=== PATIENT | female | born 1970 | race Caucasian/White ===

== ENCOUNTER 2019-08-11 13:15 | Emergency (ER) | payer OTHER, SELFPAY ==
[2019-08-11 13:20] VITALS: BP 140/90; PULSE 74; RESP 20; O2SAT 100
--- NOTE | 2019-08-11 13:39 | ED.URI ---
HPI - URI/Sore Throat General Chief Complaint: Upper Respiratory Infection Stated Complaint: Eat/Nose/throat Time Seen by Provider: 08/11/19 13:39 Source: patient and family Mode of arrival: ambulatory History of Present Illness HPI Narrative: Patient presents with bilateral ear pain. Patient denies any hearing loss denies any drainage from her ears. Patient states she had cold symptoms last week which have since resolved. Patient has not taken thing [id number] for her symptoms. Related Data Allergies Allergy/AdvReac Type Severity Reaction Status Date / Time coconut Allergy Unknown Unknown Verified 08/11/19 13:43 Review of Systems Review of Systems: Narrative: CONSTITUTIONAL: Denies fever, chills, or sweats. EYES: Denies visual changes, redness, or discharge. ENT: Denies rhinorrhea, congestion, sore throat, reports left ear pain CARDIOVASCULAR: Denies chest pain, palpitations, or edema. RESPIRATORY: Denies cough or dyspnea. GASTROINTESTINAL: Denies abdominal pain, nausea, vomiting, or diarrhea. GENITOURINARY: Denies dysuria or hematuria. SKIN: Denies rash or itching. MUSCULOSKELETAL: Denies back pain, joint pain, or myalgia. NEUROLOGIC: Denies headache, numbness, or weakness. PSYCHIATRIC: Denies anxiety or depression. PMFSH Comments At time of signature, agree with nursing past medical, surgical, social and family history. There is no relevant family history pertinent to the presenting complaint Exam Narrative: Exam Narrative: GENERAL: Well-appearing, well-nourished, and in no acute distress. HEAD: Normocephalic, atraumatic. EYES: PERRLA and EOMI. ENT: Nares clear, no rhinorrhea or epistaxis. Mucous membranes moist. Left area TM bulging with erythremia to canal right TM dullness NECK: Supple. CHEST: Clear to auscultation. No respiratory distress. HEART: Regular rate and rhythm. No murmur heard. Normal peripheral pulses. ABDOMEN: Soft, nontender, nondistended, normal active bowel sounds. EXTREMITIES: Normal range of motion. No edema. SKIN: Warm, dry, no rash. NEURO: No focal deficits. Alert and oriented x3. [place] Coma Scale Eye Opening: Spontaneous 4 [place] Coma Scale Motor: Obeys Commands 6 [place] Coma Scale Verbal: Oriented 5 [place] Coma Scale Total 15 MDM - URI/Sore Throat Differential Diagnosis Differential diagnosis: Likely upper respiratory infection, otitis media and viral infection Critical Care Time Critical Care Time Critical Care Time: No Discharge Plan Discharge Clinical Impression: Otitis media Qualifiers: Otitis media type: suppurative Chronicity: acute Laterality: left Recurrence: non-recurrent Spontaneous tympanic membrane rupture: without spontaneous rupture Qualified Code(s): H66.002 - Acute suppurative otitis media without spontaneous rupture of ear drum, left ear Patient Disposition: Home, Self-Care Condition: Stable Instructions: Antibiotic Form Additional Instructions: take medications as prescribed. return for worsening signs or symptoms return if facial pain increases, fever, worsening symptoms, shortness of breath, chest pain, productive cough or difficulty swallowing) and agrees with the plan. congestion - flonase am and pm for chronic sinus congestion or prolonged symptoms of sinusitis (takes several days to work). one to three times a day of irrigation of sinus with saline spray, ocean nasal spray or narinder pot. fluids. if you don't have hypertension-afrin nasal spray with a 3 day limit for immediate relief of sinus congestion. for runny nose: do over the counter antihistamine (claritin, benadryl, zyrtec) for sneezing, runny nose. allergies. sudafed or decongestant can also be used, unless you have elevated blood pressure, nursing or . pineapple juice to help thin mucus pain and discomfort: over the counter treatment for pain - tylenol - with a max of 3 grams a day, not to take more than 3-4 day
== END 2019-08-11 14:07 | disposition home or self-care (01) ==
PROVIDERS: Emergency Provider Nurse Practitioner Family
DX: H66.002 Acute suppurative otitis media without spontaneous rupture of ear drum, left ear (principal)
CPT/HCPCS: 99213; G0463

== ENCOUNTER 2021-11-06 10:21 | Emergency (ER) | payer OTHER, SELFPAY ==
[2021-11-06 10:28] VITALS: BP 126/76; PULSE 78; RESP 14; TEMP 36.8; O2SAT 100
--- NOTE | 2021-11-06 10:34 | ED.URI ---
HPI - URI/Sore Throat General Chief Complaint: Upper Respiratory Infection Stated Complaint: ears throat abdo pain Time Seen by Provider: 11/06/21 10:36 Source: patient and RN notes reviewed History of Present Illness HPI Narrative: Patient is a 51-year-old female who presents the urgent care with complaints of sore throat, bilateral ear pain, intermittent abdominal discomfort and dysuria. Patient also reports of intermittent back pain. States that her symptoms have been ongoing off and on for approximately 2 months. Patient states that she was taking some cold medication [id number] without much relief. Denies of any fevers, nausea, vomiting. Denies of any known ill exposures. No other acute complaints. No acute distress noted. Patient aware of the plan of care. Some parts of this dictation were generated by voice recognition software and may contain typographical and/or grammatical inaccuracies. Related Data Home Medications Medication Instructions Recorded Confirmed quetiapine 100 mg PO DAILY 11/06/21 11/06/21 sertraline 100 mg PO DAILY 11/06/21 11/06/21 Allergies Allergy/AdvReac Type Severity Reaction Status Date / Time No Known Allergies Allergy Verified 11/06/21 10:38 Review of Systems Review of Systems: CONSTITUTIONAL: Denies fever, chills, or sweats. EYES: Denies visual changes, redness, or discharge. ENT: Reports of bilateral otalgia and sore throat CARDIOVASCULAR: Denies chest pain, palpitations, or edema. RESPIRATORY: Denies cough or dyspnea. GASTROINTESTINAL: Reports of mild abdominal discomfort without nausea or vomiting GENITOURINARY: Reports of dysuria SKIN: Denies rash or itching. MUSCULOSKELETAL: Denies back pain, joint pain, or myalgia. NEUROLOGIC: Denies headache, numbness, or weakness. All other systems reviewed are negative, except as documented in HPI. PMFSH Comments At the time of my signature, I reviewed and agree with the nursing past medical, surgical, social, and family history. There is no relevant family history pertinent to the patient complaint. Exam Narrative: GENERAL: This is a well-nourished, well-developed patient, in no apparent distress. HEAD: normocephalic, atraumatic. EYES: PERRL. Sclera clear/white. Vision is grossly intact. EARS: External ears normal, auditory canals clear and without drainage, mild bilateral effusions without otitis. TMs normal without perforation. Hearing grossly intact. NOSE: External nose normal with no obvious nasal discharge, nares without redness, no rhinorrhea. THROAT: Mucous membranes moist, posterior pharynx clear. Moderate postnasal drainage NECK: Neck supple CARDIOVASCULAR: Regular rate and rhythm without murmurs, gallops, or rubs. RESPIRATORY: Clear to auscultation. Breath sounds equal bilaterally. No wheezes, rales, or rhonchi. GASTROINTESTINAL: Abdomen soft, non-tender, nondistended. Bowel sounds are active. SKIN: warm, intact with no suspicious lesions or rash, good texture and turgor. NEURO: awake, alert, and oriented to person, place and time. There were no obvious focal neurologic abnormalities. EXTREMITIES: No clubbing, cyanosis, or edema. BACK: Mild diffuse lumbar tenderness Course Course Level of Care: Express Care Visit Vital Signs Vital signs: Vital Signs Temperature 98.3 F 11/06/21 10:28 Pulse Rate 78 11/06/21 10:28 Respiratory Rate 14 11/06/21 10:28 Blood Pressure 126/76 11/06/21 10:28 Pulse Oximetry 100 11/06/21 10:28 Temperature 98.3 F 11/06/21 10:28 Pulse Rate 78 11/06/21 10:28 Respiratory Rate 14 11/06/21 10:28 Blood Pressure 126/76 11/06/21 10:28 Pulse Oximetry 100 11/06/21 10:28 Reviewed MDM - URI/Sore Throat MDM Narrative Medical decision making narrative: Reviewed lab results with the patient. She is aware that urine analysis is not indicative of a urinary tract infection. Advised the patient to use [id number] antihistamine such as Claritin and Flonase nasal
== END 2021-11-06 11:20 | disposition home or self-care (01) ==
PROVIDERS: Emergency Provider Nurse Practitioner Family
DX: J32.9 Chronic sinusitis, unspecified (principal); R30.0 Dysuria; F32.A Depression, unspecified
CPT/HCPCS: 81003; 99213; G0463

== ENCOUNTER 2021-11-15 09:17 | Outpatient (CLI) | payer OTHER, SELFPAY ==
--- NOTE | ~2021-11-15 | US_ITS ---
EXAMINATION: US abdomen complete DATE: 11/15/2021 09:45 INDICATION: Abdominal pain TECHNIQUE: Multiple grayscale and Doppler ultrasound images of the abdomen were obtained. COMPARISON: None available FINDINGS: The head and body of the pancreas are normal. The pancreatic tail is obscured by bowel gas. The liver is normal with normal echogenicity and echotexture. No surface nodularity. Normal hepatope chad flow in the main portal vein. The gallbladder is surgically absent. The normal common bile duct m easures 4 mm. The visualized portions of the aorta and inferior vena cava are normal. The right kidney measures 11.4 x 4.1 x 4.6 cm. The left kidney measures 11.7 x 5.0 x 5.2 cm. The kidn eys demonstrate normal parenchymal echogenicity. There is no hydronephrosis. The spleen is normal in appearance and measures 10.2 cm. IMPRESSION: 1. Unremarkable postcholecystectomy ultrasound. Reviewed, dictated and finalized at location A.
== END 2021-11-15 09:18 | disposition home or self-care (01) ==
LOC: CHSIMG 09:20
PROVIDERS: PCP Family Medicine
DX: R10.11 Right upper quadrant pain (principal); J44.9 Chronic obstructive pulmonary disease, unspecified
CPT/HCPCS: 76700

== ENCOUNTER 2021-11-24 10:09 | Outpatient (CLI) | payer OTHER, SELFPAY ==
--- NOTE | 2021-12-06 11:38 | WPDPFTINT ---
PFT Procedure Performed PFT Procedure Performed Spirometry with Pre/Post Bronchodilator Plethysmography (Lung Vol) Diffusing Cap (DLCO) Flow Vol Loop PFT Interpretation DOS: 11/24/2021 REQUESTING: Dr. Sierra REASON FOR TESTING: Asthma PULMONARY FUNCTION TESTS Results are reliable and reproducible. Spirometry: The pre bronchodilator FEV1 is 83% predicted, 2.19 L normal. Pre bronchodilator FVC is 95%, 3.08 L, normal. The FEV1/FVC ratio is 71%. After bronchodilator administration there is an 11% increase in the FEV1, greater than 200 mL. The FEF 25-75% is 50% predicted, 1.5 L and increases by 21%, 310 mL. Lung volumes: Total lung capacity 107% predicted, 5.56 L, normal. The slow vital capacity is 101% predicted, 3.26 L. this is similar to the forced vital capacity obtained in the spirometry. Residual volume is 20 125% predicted, 2.29 L consistent with mild air trapping RV/TLC is 119%, elevated consistent with mild air trapping. The ERV is 0.45 L. Airway resistance is increased. Diffusion: DLCO 78% predicted, 18.2 mL/mmHg/minute. DLCO/VA is 90% predicted. Flow volume loop: Normal. IMPRESSION: This study shows a mild ventilatory impairment with significant response to bronchodilator especially in the small airways, mild air trapping, normal diffusion. In the proper clinical setting, this pattern is consistent with asthma. Shaniqua Archibald MD
== END 2021-11-24 10:10 | disposition home or self-care (01) ==
LOC: CHSCARD 10:11
PROVIDERS: PCP Family Medicine
DX: R10.11 Right upper quadrant pain (principal); J44.9 Chronic obstructive pulmonary disease, unspecified
CPT/HCPCS: 94060; 94726; 94729

== ENCOUNTER 2022-01-18 06:19 | Emergency (ER) | payer OTHER, SELFPAY ==
--- NOTE | ~2022-01-18 | XR_ITS ---
EXAMINATION: XR hand RT 2V, XR wrist RT 2V DATE: 01/18/2022 07:21 INDICATION: Right hand and wrist pain and swelling near the base of the thumb TECHNIQUE: 1. Posteroanterior and lateral views of the right wrist were obtained. 2. Dorsal palmar and lateral views of the right hand were obtained. COMPARISON: None. FINDINGS: Alignment of the right hand and wrist are normal. No fracture identified. Minimal to mild osteoarthr itis at the interphalangeal joints. Lucency with thin sclerotic margins at the medial head of the sec ond middle phalanx which could represent a degenerative subchondral cysts or chronic erosion. Nonspec ific soft tissue swelling along the dorsal aspect of the thumb and radial aspect of the wrist. IMPRESSION: 1. 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 No acute osseous abnor mality. Reviewed, dictated and finalized at location A. IMPRESSION: 1. 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 No acute osseous abnormality.
[2022-01-18 06:31] VITALS: BP 127/86; PULSE 76; RESP 14; TEMP 36.8; O2SAT 100
[2022-01-18] MEDS: KETOROLAC (*BKC) 60 MG/2 ML VIAL IM (07:27)
--- NOTE | 2022-01-18 07:38 | ED.FALL ---
HPI - Fall General Chief Complaint: Fall Stated Complaint: FALL HAND/LEG PAIN Source: patient Mode of arrival: ambulatory Limitations: no limitations History of Present Illness HPI Narrative: this is a 51-year-old female that had a fall when she tripped yesterday and fell on an outstretched right hand causing some swelling and bruising to the right wrist area, has a left mid murphy healing abrasion with some bruising although has good range of motion in her knee and and foot of her left leg, has good range of motion in her right wrist although limited secondary to pain and swelling with no numbness or tingling. Patient is up-to-date with her tetanus. complaint: fall Onset (ago): minute(s) Fall witnessed: no Loss of consciousness: none Prolonged down time: no Symptoms prior to fall: none Context: tripped/slipped Related Data Home Medications Medication Instructions Recorded Confirmed quetiapine 100 mg tablet 100 mg PO DAILY 11/06/21 01/18/22 sertraline 100 mg tablet 100 mg PO DAILY 11/06/21 01/18/22 Allergies Allergy/AdvReac Type Severity Reaction Status Date / Time No Known Allergies Allergy Verified 01/18/22 06:42 Review of Systems Review of Systems: All systems reviewed & are unremarkable except as noted in HPI and below PMFSH Past Medical History Medical History Depression Exam Const: General: healthy appearing and no acute distress Limitations: no limitations HENMT: Head: normal to inspection Face and sinus: normal facial exam Mouth: Yes Normal oral and palatal mucosa present Eyes: Conjunctivae: conjunctivae normal EOM: EOMs intact bilaterally Neck: Neck: normal visual inspection, no lymphadenopathy and no meningeal signs Chest: Chest palpation & inspection: normal inspection of the chest Resp: Effort & Inspection: normal respiratory effort Auscultation: clear to auscultation bilaterally Cardio: Rate: regular rate Rhythm: regular rhythm GI: Auscultation: normal bowel sounds Back/Spine/Pelvis: Back: no CVA tenderness Skin: Other: is a contusion and abrasion to left mid murphy area, right wrist with swelling and bruising Neuro: General: patient oriented x3, moves all extremities, no meningeal signs and no focal motor deficits Extrem: General: normal to inspection and no clubbing, cyanosis or edema Psych: Mental Status: mental status grossly normal Affect: normal affect Attitude: cooperative Course Course Emergency Course: x-rays performed and reviewed with patient which showed no acute fractures patient was given a dose of 60mg IM Toradol and after reassessment pain has improved patient is up-to-date with her tetanus. Vital Signs Vital signs: Vital Signs Temperature 36.8 C 01/18/22 06:31 Pulse Rate 76 01/18/22 06:31 Respiratory Rate 14 01/18/22 06:31 Blood Pressure 127/86 01/18/22 06:31 Pulse Oximetry 100 01/18/22 06:31 Oxygen Delivery Room Air 01/18/22 06:31 Temperature 36.8 C 01/18/22 06:31 Pulse Rate 76 01/18/22 06:31 Respiratory Rate 14 01/18/22 06:31 Blood Pressure 127/86 01/18/22 06:31 Pulse Oximetry 100 01/18/22 06:31 Oxygen Delivery Room Air 01/18/22 06:31 Critical Care Time Critical Care Time Critical Care Time: No Discharge Plan Discharge Clinical Impression: Abrasion Right wrist sprain Qualifiers: Encounter type: initial encounter Qualified Code(s): S63.501A - Unspecified sprain of right wrist, initial encounter Patient Disposition: Home, Self-Care Condition: Stable Instructions: Antibiotic Form, Abrasion (ED), Wrist Sprain (ED) Additional Instructions: can take Aleve [id number] as needed and follow-up primary care physician if symptoms persist or worsen. Prescriptions: No Action sertraline 100 mg tablet 100 mg PO DAILY quetiapine 100 mg tablet 100 mg PO DAILY loratadine 10 mg tablet 10 mg PO DAILY Qty:
[2022-01-18 07:53] VITALS: BP 127/90; PULSE 65; RESP 18; TEMP 36.3; O2SAT 96
== END 2022-01-18 07:53 | disposition home or self-care (01) ==
PROVIDERS: Emergency Provider Emergency Medicine; PCP Family Medicine
DX: S63.501A Unspecified sprain of right wrist, initial encounter (principal); T14.8XXA Other injury of unspecified body region, initial encounter; W19.XXXA Unspecified fall, initial encounter
CPT/HCPCS: 73100; 73120; 96372; 99283; J1885

== ENCOUNTER 2022-02-07 08:21 | Outpatient (CLI) | payer OTHER, SELFPAY ==
--- NOTE | ~2022-02-07 | MM_ITS ---
EXAMINATION: MM screening lauren BI w beatriz HISTORY: Screening mammogram TECHNIQUE: Craniocaudal and mediolateral oblique 3-D tomosynthesis images were obtained and synthetic 2-D images were generated. CAD analysis was submitted and interpreted. COMPARISON: No prior mammogram is available for comparison at this institution. BREAST PARENCHYMAL COMPOSITION: There are scattered areas of fibroglandular density. FINDINGS: Circumscribed benign intramammary lymph node in the left axillary tail. There is no evidenc e of suspicious mass, calcification, or architectural distortion to suggest malignancy in either [address]. There has been no suspicious interval change. IMPRESSION: 1. No mammographic evidence of malignancy. 2. Recommend routine screening mammography in one year. BI-RADS Category 2: Benign finding(s). Reviewed, dictated and finalized at location A.
== END 2022-02-07 08:22 | disposition home or self-care (01) ==
LOC: CHSIMG 08:23
PROVIDERS: PCP Family Medicine; Visit Provider Family Medicine
DX: Z12.31 Encounter for screening mammogram for malignant neoplasm of breast (principal)
CPT/HCPCS: 77063; 77067

== ENCOUNTER 2022-06-02 20:27 | Emergency (ER) | payer OTHER, SELFPAY ==
[2022-06-02 21:17] VITALS: BP 129/79; PULSE 75; RESP 18; TEMP 36.6; O2SAT 98
--- NOTE | 2022-06-02 21:20 | ED.URI ---
HPI - URI/Sore Throat General Chief Complaint: Upper Respiratory Infection Stated Complaint: diarrhea/fever/sore throat Source: patient Mode of arrival: ambulatory Limitations: no limitations History of Present Illness HPI Narrative: 52-year-old female with a history of smoking, chronic bronchitis presents to the ER with -- fever for the past 1 day -- sore throat -- diarrhea off and on for the past 4 days. No nausea/ vomiting. No abdominal pain. -- Cough with mucoid sputum MD elicited complaint: fever and cough Pertinent past history: COPD Onset (ago): day(s) ( off and on for the past 4 days) Consistency: intermittent Description of mucous: watery Able to tolerate fluids by mouth: Yes Exacerbating factors: nothing Relieving factors: nothing Associated symptoms: fever, cough and diarrhea Treatments prior to arrival: none Related Data Home Medications Medication Instructions Recorded Confirmed quetiapine 100 mg tablet 100 mg PO HS 08/11/19 06/02/22 sertraline 50 mg tablet 50 mg PO DAILY 08/11/19 06/02/22 albuterol sulfate 90 mcg/actuation 2 puff inhalation PRN PRN 06/02/22 06/02/22 aerosol inhaler Shortness Of Breath Or Wheezing fluticasone 250 mcg-salmeterol 50 2 inh inhalation BID 06/02/22 06/02/22 mcg/dose blistr powdr for inhalation (Advair Diskus) Allergies Allergy/AdvReac Type Severity Reaction Status Date / Time coconut Allergy Unknown Unknown Verified 08/11/19 13:43 Review of Systems Review of Systems: All systems reviewed & are unremarkable except as noted in HPI and below Constitutional: Constitutional: Reports as per HPI, Reports no additional constitutional complaints and Reports fever(s) Eyes: Eyes: Reports as per HPI and Reports no additional eye complaints ENT: Reports system reviewed and no additional complaints, except as documented and Reports as per HPI Cardiovascular: Cardiovascular: Reports as per HPI and Reports no additional cardiovascular complaints Respiratory: Respiratory: Reports as per HPI, Reports no additional respiratory complaints and Reports cough Gastrointestinal: Gastrointestinal: Reports as per HPI, Reports no additional gastrointestinal complaints and Reports diarrhea Genitourinary: Genitourinary: Reports no additional female genitourinary complaints and Reports as per HPI Musculoskeletal: Musculoskeletal: Reports no additional musculoskeletal complaints and Reports as per HPI Integumentary/Breasts: Skin/Breast: Reports system reviewed and no additional complaints, except as docu and Reports as per HPI Neurologic: Reports system reviewed and no additional complaints, except as documented and Reports as per HPI Psychiatric: Psychiatric: Reports no additional psychiatric complaints and Reports as per HPI Endocrine: Endocrine: Reports no additional endocrine complaints and Reports as per HPI Hematologic/Lymphatic: Hematologic/Lymphatic: Reports no additional hematologic/lymphatic complaints and Reports as per HPI Allergic/Immunologic: Allergic/Immunologic: Reports no additional allergic/immunologic complaints and Reports as per HPI Exam Const: General: healthy appearing and no acute distress Nutritional Appearance: well nourished Orientation/consciousness: patient oriented x3 Limitations: no limitations HENMT: Head: normal to inspection Ears: external ears normal Face/Nose/Sinus: Normal external nose present Face and sinus: normal facial exam and sinus tenderness Mouth: Yes Normal oral and palatal mucosa present Throat: posterior oropharynx normal Eyes: Conjunctivae: conjunctivae normal Pupils: Equal, round and reactive pupils present EOM: EOMs intact bilaterally Direct Ophthalmoscopy: no photophobia Neck: Neck: normal visual inspection and lymphadenopathy Chest: Chest palpation & inspection: normal inspection of the chest Resp: Effort & Inspection: normal respiratory effort Auscultation: diminished lung sounds Cardio: Rate: regular rate Rhythm:
[2022-06-02 21:35] VITALS: BP 129/79; PULSE 75; RESP 18; TEMP 36.5; O2SAT 98
[2022-06-02 22:10] LABS: Strep Group A RT-PCR Not Detected (Negative)
[2022-06-02 22:21] LABS: Influenza A QL RT-PCR Negative (Negative); Influenza B QL RT-PCR Negative (Negative); SARS-CoV-2 RNA PCR Negative (Negative)
[2022-06-02 22:31] LABS: RSV RNA, RT-PCR Negative (Negative)
[2022-06-02] MEDS: AZITHROMYCIN 250 MG TABLET 500 MG PO (22:46)
[2022-06-02 22:53] VITALS: BP 133/85; PULSE 78; RESP 20; TEMP 36.8; O2SAT 97
== END 2022-06-02 22:55 | disposition home or self-care (01) ==
PROVIDERS: Emergency Provider Internal Medicine Critical Care Medicine; PCP Family Medicine
DX: J06.9 Acute upper respiratory infection, unspecified (principal); J40 Bronchitis, not specified as acute or chronic; Z20.822 Contact with and (suspected) exposure to COVID-19
CPT/HCPCS: 87502; 87634; 87651; 99283; A9270; U0003; U0005

== ENCOUNTER 2022-06-20 07:57 | Outpatient (CLI) | payer OTHER, SELFPAY ==
--- NOTE | ~2022-06-20 | CT_ITS ---
EXAMINATION: CT lung screening DATE: 06/20/2022 08:50 INDICATION: Personal history of nicotine dependence, current smoker with 30 pack year history TECHNIQUE: Computed tomography (CT) of the chest was performed without intravenous contrast. The dose -length product (DLP) was 82.62 mGy-cm. Automated exposure control and iterative reconstruction techn ique were employed. COMPARISON: None FINDINGS: There is mild emphysema. A 3 mm nodule is present in the right middle lobe. There is a 2 mm nodule in the superior segment of the left lower lobe. There is a 3 mm nodule of the lingula there i s a 2 mm subpleural nodule of the right lower lobe. The lungs are free of acute opacities. No pleural effusion or pneumothorax. No pathologically enlarged thoracic lymph nodes are identified. The heart size is normal. Calcified coronary artery atherosclerosis is noted. Calcified right hilar lymph nodes are consistent with old granulomatous disease. The gallbladder is surgically absent. There is mild t horacic spondylosis. IMPRESSION: 1. Lung-RADS category 2: Benign appearance or behavior. Continue annual screening with noncontrast lo w-dose chest CT in 12 months. Reviewed, dictated and finalized at location A. K CONTROL CLERK IMPRESSION: 1. Lung-RADS category 2: Benign appearance or behavior. Continue annual screeni ng with noncontrast low-dose chest CT in 12 months.
== END 2022-06-20 07:58 | disposition home or self-care (01) ==
LOC: CHSIMG 07:59
PROVIDERS: PCP Family Medicine; Visit Provider Registered Nurse
DX: Z87.891 Personal history of nicotine dependence (principal)
CPT/HCPCS: 71271

== ENCOUNTER 2023-01-31 08:14 | Outpatient (CLI) | payer OTHER, SELFPAY ==
--- NOTE | ~2023-01-31 | MR_ITS ---
MRI of the brain Clinical History: Chronic headache Technique: Axial and sagittal T1-weighted images were acquired. These were followed by axial T2-weigh clifford, diffusion weighted, gradient, and FLAIR images. Findings: There is no signal abnormality in the brain parenchyma. No acute infarct, intracranial hemo rrhage, or mass lesion. Ventricles and subarachnoid spaces are unremarkable. Orbits are unremarkable. Paranasal sinuses and l eft mastoid air cells are clear. There is minimal fluid in right mastoid air cells. Major intracrania l flow voids appear intact. Sagittal midline structures are intact. IMPRESSION: No intracranial abnormality. Minimal fluid in right mastoid air cells. Reviewed, dictated and finalized at location M.
== END 2023-01-31 08:15 | disposition home or self-care (01) ==
LOC: CHSIMG 08:15
PROVIDERS: PCP Registered Nurse; Visit Provider Registered Nurse
DX: R51.9 Headache, unspecified (principal)
CPT/HCPCS: 70551

== ENCOUNTER 2023-02-26 08:13 | Outpatient (CLI) | payer OTHER, SELFPAY ==
--- NOTE | ~2023-02-26 | MM_ITS ---
EXAMINATION: MM screening lauren BI w beatriz HISTORY: Screening TECHNIQUE: Craniocaudal and mediolateral oblique 3-D tomosynthesis images were obtained and synthetic 2-D images were generated. CAD analysis was submitted and interpreted. COMPARISON: 02/07/2022 BREAST PARENCHYMAL COMPOSITION: Breast composed of scattered areas of fibroglandular density FINDINGS: There is no evidence of suspicious mass, calcification, or architectural distortion to sugg est malignancy in either breast. There has been no suspicious interval change. IMPRESSION: 1. No mammographic evidence of malignancy. 2. Recommend routine screening mammography in one year. BI-RADS Category 1: Negative Reviewed, dictated and finalized at location A.
== END 2023-02-26 08:14 | disposition home or self-care (01) ==
LOC: CHSIMG 08:15
PROVIDERS: PCP Registered Nurse; Visit Provider Registered Nurse
DX: Z12.31 Encounter for screening mammogram for malignant neoplasm of breast (principal)
CPT/HCPCS: 77063; 77067

== ENCOUNTER 2023-09-21 09:45 | Emergency (ER) | payer OTHER, SELFPAY ==
[2023-09-21 09:50] VITALS: BP 151/74; PULSE 79; RESP 20; TEMP 36.7; O2SAT 100
--- NOTE | 2023-09-21 10:14 | ED.URI ---
HPI - URI/Sore Throat General Chief Complaint: Upper Respiratory Infection Stated Complaint: cough/throat Time Seen by Provider: 09/21/23 10:15 Source: patient, RN notes reviewed and old records reviewed Mode of arrival: ambulatory Limitations: no limitations History of Present Illness HPI Narrative: 53 year old female who [facility] with complaints of cough and sore throat since last night, Patient reports that she has a cough and some nasal drainage and has been taking DayQuil and NyQuil and has used her inhaler and taken a neb treatment. Patient voices history of COPD and continues to use tobacco. Patient reports no chills or sweats or any body aches, states no known fevers. MD elicited complaint: cough and sore throat Onset (ago): day(s) (last night) Able to tolerate fluids by mouth: Yes Treatments prior to arrival: other (inhaler and breathing treatment) Related Data Home Medications Medication Instructions Recorded Confirmed quetiapine 100 mg tablet 100 mg PO HS 08/11/19 09/21/23 sertraline 50 mg tablet 50 mg PO DAILY 08/11/19 09/21/23 amitriptyline 10 mg tablet mg 09/21/23 Allergies Allergy/AdvReac Type Severity Reaction Status Date / Time coconut Allergy Unknown Unknown Verified 08/11/19 13:43 Review of Systems Review of Systems: CONSTITUTIONAL: Denies malaise, chills, sweats, or fever. EYES: Denies visual changes, redness, or discharge. ENT: Reports rhinorrhea, congestion, sinus pain, no otalgia and positive for sore throat. CARDIOVASCULAR: Denies chest pain, palpitations, or edema. RESPIRATORY: Reports cough.? Denies acute dyspnea, no wheezing noted GASTROINTESTINAL: Denies abdominal pain, nausea, vomiting, diarrhea SKIN: Denies rash or itching. MUSCULOSKELETAL: Denies myalgia. NEUROLOGIC: Denies headache. All systems reviewed & are unremarkable except as noted in HPI and below PMFSH Past Medical History Medical History COPD (chronic obstructive pulmonary disease) Depression Hx of migraines Social History Social History Smoking packs per day: 0.5 Smoking cigarettes per day: 10.0 Years smoked: 32 Smoking pack-years: 16.00 Smoking status: Current every day smoker Tobacco type: cigarettes Alcohol intake: current Alcohol use details: social Substance use type: does not use Gender identity (if verbalized by the patient): Female Comments At time of signature, agree with nursing past medical, surgical, social and family history. There is no relevant family history pertinent to the presenting complaint Exam Narrative: GENERAL: Well-appearing, well-nourished, and in no acute distress. HEAD: Normocephalic EYES: PERRLA, conjunctivae clear ENT: Nares clear, turbinates edematous and erythematous, clear discharge. Mucous membranes moist. TM pearly york with dull light reflex bilaterally; no tragal tenderness. Oropharynx erythematous without lesions. Tonsils not enlarged and without exudate, no drooling, no hoarseness, no trismus, uvula midline.post nasal drainage NECK: Supple. No lymphadenopathy CHEST: Clear to auscultation, breath sounds equal. No wheezing, rhonchi, rales, or stridor. No respiratory distress, speaks in full sentences.cough SAO2 100% on room air HEART: Regular rate and rhythm. No murmur heard. SKIN: Warm, dry, no rash. NEURO: Alert and oriented x3. PSYCH: Normal mood and affect Course Course Emergency Course: Patient is aware of diagnosis, understands and agrees to treatment plan.? Anticipatory guidance given.? Patient agrees to follow-up as directed and is aware of reasons to seek care at the emergency department. Portions of this record may have been created with voice recognition software Level of Care: Express Care Visit Vital Signs Vital signs: Vital Signs Temperature 36.7 C 09/21/23 09:50
== END 2023-09-21 10:37 | disposition home or self-care (01) ==
PROVIDERS: Emergency Provider Registered Nurse; PCP Family Medicine
DX: J06.9 Acute upper respiratory infection, unspecified (principal); R05.9 Cough, unspecified; Z20.822 Contact with and (suspected) exposure to COVID-19; F17.210 Nicotine dependence, cigarettes, uncomplicated; J44.9 Chronic obstructive pulmonary disease, unspecified; F32.A Depression, unspecified
CPT/HCPCS: 87426; 87804; 99213; G0463

== ENCOUNTER 2023-10-30 10:09 | Outpatient (CLI) | payer OTHER, SELFPAY ==
--- NOTE | ~2023-10-30 | XR_ITS ---
Left Knee Technique: AP, lateral, and sunrise views were obtained. Clinical History: Pain Findings: No fracture or dislocation is seen. Osseous alignment is anatomic. Minimal patellar spurrin g present. Soft tissues are unremarkable. No joint effusion is seen. Impression: Minimal patellar spurring. Reviewed, dictated and finalized at location . Impression: Minimal patellar spurring.
== END 2023-10-30 10:10 | disposition home or self-care (01) ==
LOC: CHSIMG 10:11
PROVIDERS: PCP Registered Nurse; Visit Provider Registered Nurse
DX: M25.561 Pain in right knee (principal); M25.562 Pain in left knee; M76.52 Patellar tendinitis, left knee
CPT/HCPCS: 73562

== ENCOUNTER 2024-12-30 23:57 | Emergency (ER) | payer OTHER, SELFPAY ==
[2024-12-30 23:59] VITALS: BP 132/84; PULSE 77; RESP 18; TEMP 36.6; O2SAT 97
--- NOTE | 2024-12-31 | ED_ITS ---
HPI - Extremity Injury (Lower) General Chief Complaint: Extremity Injury, Lower Stated Complaint: foot pain Time Seen by Provider: 12/31/24 00:00 Source: patient Mode of arrival: ambulatory Limitations: no limitations History of Present Illness HPI Narrative: 54-year-old female with a history of COPD presents to the ED with a 1 day history of -- right foot pain. The pain is localized over the 1st metatarsal on the top of the foot. Patient also complains of pain on her soul. No trauma or injury. No bruising. 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 No injury in any other joints. Onset (ago): hour(s) ( 12 hours) Injury: Right: foot Severity: severe Relieving factors: immobilization Exacerbating factors: weight bearing Related Data Home Medications ?Medication ?Instructions ?Recorded ?Confirmed ?Last Taken ?Type quetiapine 100 mg tablet 100 mg PO HS 08/11/19 09/21/23 Unknown History sertraline 50 mg tablet 50 mg PO DAILY 08/11/19 09/21/23 Unknown History quetiapine 100 mg tablet 100 mg PO DAILY 11/06/21 01/18/22 Unknown History sertraline 100 mg tablet 100 mg PO DAILY 11/06/21 01/18/22 Unknown History amitriptyline 10 mg tablet mg 09/21/23 Unknown History Allergies Allergy/AdvReac Type Severity Reaction Status Date / Time coconut Allergy Unknown Unknown Verified 11/13/23 07:52 Review of Systems 2 Review of Systems: All systems reviewed & are unremarkable except as noted in HPI and below PMFSH Past Medical History Medical History Depression Depression COPD (chronic obstructive pulmonary disease) Hx of migraines Social History Social History Smoking packs per day: 0.5 Smoking cigarettes per day: 10.0 Years smoked: 32 Smoking pack-years: 16.00 Smoking status: Current every day smoker Tobacco type: cigarettes Alcohol intake: current Alcohol use details: social Substance use type: does not use Gender identity (if verbalized by the patient): Female Exam Narrative: vitals are stable Const: General: no acute distress Orientation/consciousness: patient oriented x3 Limitations: no limitations HENMT: Head: normal to inspection Ears: external ears normal Face/Nose/Sinus: Normal external nose present Face and sinus: normal facial exam Mouth: Yes Normal oral and palatal mucosa present Throat: posterior oropharynx normal Eyes: Conjunctivae: conjunctivae normal Pupils: Equal, round and reactive pupils present EOM: EOMs intact bilaterally Direct Ophthalmoscopy: no photophobia Neck: Neck: normal visual inspection, no lymphadenopathy and no meningeal signs Chest: Chest palpation & inspection: normal inspection of the chest Resp: Effort & Inspection: normal respiratory effort Auscultation: diminished lung sounds Cardio: Rate: regular rate Rhythm: regular rhythm GI: GI Palp: Yes Soft to palpation Auscultation: normal bowel sounds Other: no tenderness/ rigidity/ rebound. : General: Yes no CVA tenderness Back/Spine/Pelvis: Back: no CVA tenderness Skin: General skin exam: normal color Rashes: no rashes Wounds: no wounds Neuro: General: patient oriented x3, moves all extremities, no meningeal signs, no focal motor deficits and CN's II-XI intact bilaterally Cranial nerves: Yes Nystagmus not present Speech: normal speech Gait exam (Neuro): Normal gait present Extrem: General: normal to inspection and no clubbing, cyanosis or edema Other: Tenderness over the mid foot on the top around 1st metatarsal. Patient is also noted to have tenderness on the sole. Psych: Mental Status: mental status grossly normal Affect: normal affect Attitude: cooperative Course Course Emergency Course: Midfoot arthritis-- No fracture/dislocation noted. Questionable accessory navicular. plantar fascitis Vital Signs Vital signs: Vital Signs Temperature 36.6 C 12/30/24 23:59 Pulse Rate 77 12/30/24 23:59 Respiratory Rate 18 12/30/24 23:59 Blood Pressure 132/84 12/30/24 23:59 Pulse Oximetry 97 12/30/24 23:59 Oxygen Delivery Room Air 12/30/24 23:59 Temperature 36.6 C 12/30/24 23:59 Pulse Rate 77 12/30/24 23:59 Respiratory Rate 18 12/30/24 23:59 Blood Pressure 132/84 12/30/24 23:59 Pulse Oximetry 97 12/30/24 23:59 Oxygen Delivery Room Air 12/30/24 23:59 MDM - Extremity Injury (Lower) MDM Narrative Medical decision making narrative: midfoot arthritis plantar fascitis. Imaging Data Attestation: I personally reviewed and interpreted this imaging study as follows: My impression: No fracture/dislocation noted. Questionable accessory navicular. Discharge Plan Discharge Clinical Impression: Plantar fasciitis Acute foot pain Qualifiers: Laterality: right Qualified Code(s): M79.671 - Pain in right foot Patient Disposition: Home Condition: Stable Instructions: Antibiotic Form, Plantar Fasciitis (ED) Patient Language: [place] Prescriptions: New diclofenac sodium 50 mg tablet,delayed release (DR/EC) 50 mg PO Q12H PRN (Reason: pain) Qty: 14 0RF No Action amitriptyline 10 mg tablet methylprednisolone [Medrol (Kedar)] 4 mg tablets,dose pack See Rx Instructions .ROUTE .COMPLEX Qty: 21 0RF Rx Instructions: orally per package directions fluticasone propionate [Flonase Allergy Relief] 50 mcg/actuation spray,suspension 2 spray intranasal DAILY Qty: 16 0RF Rx Instructions: administer into each nostril quetiapine 100 mg Tablet 100 mg PO HS sertraline 50 mg Tablet 50 mg PO DAILY sertraline 100 mg tablet 100 mg PO DAILY quetiapine 100 mg tablet 100 mg PO DAILY loratadine 10 mg tablet 10 mg PO DAILY Qty: 30 0RF fluticasone propionate [Flonase Allergy Relief] 50 mcg/actuation spray,suspension 2 spray NASAL DAILY Qty: 15.8 0RF Rx Instructions: administer into each nostril Follow-up/Referrals: Mariela,MD Raymond [Primary Care Provider] - Stand Alone Forms: Work/School Release IP Time of Disposition: 00:22
--- OUTSIDE RECORDS SUMMARY | 2024-12-31 | XMS_ITS | Clinical Summary ---
Author Organization [facility] [address] [facility] Address [address] [place] [address] Phone Care Team Providers Care Flexible Nanny Name Role Phone Unavailable Primary Care Provider Unavailabl e Allergies No known active allergies Medications naproxen (NAPROSYN) 500 MG Tablet Take 500 mg by mouth. 8 Active nicotine (NICODERM CQ) 21 MG/24HR PATCH 24 HR 21 mg by Transdermal route. 7 Active sertraline (ZOLOFT) 50 MG Tablet TK 1 T PO QD HS 2 9 Active ondansetron (ZOFRAN-ODT) 4 MG TABLET DISPERSIBLE Dissolve 1 tablet oral every 4 hours as needed for nausea or vomiting. 9 Active QUEtiapine Fumarate (SEROQUEL) 50 MG Tablet TK 1 T PO QD HS 0 9 Active Active Problems Problem Noted Date Diagnosed Date Suicide attempt by substance overdose 02/05/2019 Intentional drug overdose 10/08/2017 SVT (supraventricular tachycardia) 10/08/2017 COPD (chronic obstructive pulmonary disease) Depression with suicidal ideation 01/25/2017 Iron deficiency anemia 01/25/2017 Major depression, recurrent 01/25/2017 Tobacco abuse 01/25/2017 Encounters Date Type Department Care Team Description 10/28/2024 Transcribe Orders [facility] Sched[facility] [address] [place] [address] Joe Vela MD Non-ST elevation myocardial infarction (NSTEMI) (HCC) (Primary Dx) from Last 3 Months Social History Tobacco Use Types Packs/Day Years Used Date Smoking Tobacco: Some Days Cigarettes Smokeless Tobacco: Never Tobacco Cessation:Ready to Q uit: Yes Alcohol Use Standard Drinks/Week Comments Not Currently 0 (1 standard drink = 0.6 oz pur e alcohol) PHQ-2 Answer Date Recorded PHQ-2 Score 0 03/20/2019 Sexually Active Control Partners Comments Not Currently Comments No Sex and Gender Information Value Date Recorded Sex Assigned at Not on file Legal Sex Female 1:14 PM CDT Gender Identity Not on file Sexual Orientation Not on file Last Filed Vital Signs Vital Sign Reading Time Taken Comments Blood Pressure 118/72 03/23/2019 9:04 AM CDT Pulse 77 03/23/2019 9:04 AM CDT Temperature 36.4 C (97.5 F) 03/23/2019 9:04 AM CDT Respiratory Rate 18 03/23/2019 9:04 AM CDT Oxygen Saturation 97% 03/23/2019 9:04 AM CDT Inhaled Oxygen Concentration - - Weight 79.9 kg (176 lb 3.2 oz) 03/23/2019 9:04 A M CDT Height 165.1 cm (5' 5) 03/23/2019 9:04 AM CDT Body Mass Index 29.32 03/23/2019 9:04 AM CDT Plan of Treatment Health Maintenance Due Date Last Done Comments Hepatitis C Virus (HCV) Screening 1972 Mammogram 1972 TdaP Immunization 1972 Hepatitis B Immunization (1 of 3 - 19+ 3-dose series) 1991 Pneumococcal Immunization (5 0+ years) (1 of 2 - PCV) 1991 Cologuard 2017 Colonoscopy 2017 Colorectal Cancer Screening 2017 Immunochemical Fecal Occult Blood 2017 Zoster Immunization (1 of 2) 2022 SARS-COV-2 Immunization ( - 2023-25 season) 2024 Influenza Immunization (Seas on Ended) 2025 Respiratory Syncytial Virus (RSV) Immunization (Adult) (1 - 1-dose 75+ series) 2047 Human Papillomavirus (HPV) Immunization Aged Out No longer eligible b ased on patient's age to complete this topic Meningococcal Immunization (ACWY) Aged Out No longer eligible based on patient's age to complete this topic Rotavirus Immunization Aged Out No lo nger eligible based on patient's age to complete this topic Insurance [employer]
--- OUTSIDE RECORDS SUMMARY | 2024-12-31 | XMS_ITS | Referral Summary ---
Author Organization [facility] Address [address] [place] [address] Care Team Providers Care Network Administrator Name Role Phone Unknown, Notinfile Primary Care Provider Unavail able Encounters Date Type Department Care Team Description 10/08/2024 [facility] Post Discharge Follow up phone call [facility] Medical Care [address] [place] [address] Stephanie Durand 10/05/2024 3:20 PM CDT - 10/07/2024 1:09 PM CDT Hospital Encounter [facility] Acute Medicine [address] [place] [address] Kana Valentine MD [facility], DO Dusty Ortiz Chandni, MD SVT (supraventricular tachycardia) (Primary Dx); Chest pain, unspecified type Discharge Disposition: Discharge to home or self care from Last 3 Months Allergies Active Allergy Reactions Criticality Noted Date Comments Coconut Hives Medium 04/26/2019 Medications QUEtiapine (SEROquel) 50 mg tabletIndicatio ns:Depression Treatment Adjunct Take 1 tablet (50 mg total) by mouth nightly Active sertraline (ZOLOFT) 50 mg tabletIndicatio ns:depression Take 1 tablet (50 mg total) by mouth daily Active albuterol HFA (PROVENTIL HFA,VENTOLIN HFA,PROAIR HFA) 90 mcg/actuation inhaler Inhale 2 puffs every 4 (four) hours as needed for wheezing or shortness of breath 2 Active albuterol 2.5 mg /3 mL (0.083 %) nebulizer solution Take 3 mL (2.5 mg total) by nebulization every 4 (four) hours as needed for wheezing or shortness of breath Active atorvastatin (LIPITOR) 40 mg tablet Take 1 tablet (40 mg total) by mouth daily Active budesonide-form oteroL (SYMBICORT) 160-4.5 mcg/actuation inhaler Inhale 2 puffs 2 (two) times a day Active dilTIAZem XR (CARDIZEM CD,DILACOR XR) 240 mg 24 hr capsule Take 1 capsule (240 mg total) by mouth daily 30 capsule 1 Active Active Problems Problem Noted Date Diagnosed Date Chest pain, unspecified type 10/05/2024 Calculus of gallbladder 04/29/2019 Suicidal behavior with attempted self-injury Intentional drug overdose 10/08/2017 SVT (supraventricular tachycardia) 10/08/2017 COPD (chronic obstructive pulmonary disease) Depression with suicidal ideation 01/25/2017 Iron deficiency anemia 01/25/2017 Tobacco abuse 01/25/2017 Major depression, recurrent 01/25/2017 Suicide attempt by substance overdose Social History Tobacco Use Types Packs/Day Years Used Date Smoking Tobacco: Former Cigarettes 0.3 20 Smokeless Tobacco: Never Tobacco Cessation:Ready to Q uit: Yes Alcohol Use Standard Drinks/Week Comments No 0 (1 standard drink = 0.6 oz pur e alcohol) Personal Safety Answer Date Recorded Have you ever been in or are you currently in a harmful physical or emotional relationship or is someone making you feel afraid or unsafe? 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 Gender Identity Not on file Sexual Orientation Not on file Last Filed Vital Signs Vital Sign Reading Time Taken Comments Blood Pressure 109/60 10/07/2024 11:00 AM CDT Pulse 62 10/07/2024 11:00 AM CDT Temperature 36.7 C (98.1 F) 10/07/2024 11:00 AM CDT Respiratory Rate 16 10/07/2024 11:0 0 AM CDT Oxygen Saturation 96% 10/07/2024 11: 00 AM CDT Inhaled Oxygen Concentration - - Weight 80.2 kg (176 lb 12.9 oz) 10/05/2024 6:50 PM CDT Height 157.5 cm (5' 2) 10/05/2024 6:50 PM CDT Body Mass Index 32.34 10/05/2024 6:50 PM CDT Plan of Treatment Not on file Procedures Procedure Name Priority Date/Time Associated Diagnosis Comments EGFR Routine 10/07/2024 5:39 AM CDT DIFFERENTIAL AUTO Routine 10/07/2024 5:3 9 AM CDT MAGNESIUM Routine 10/07/2024 5:39 AM CDT COMPREHENSIVE METABOLIC PANEL Routine 10/07/2024 5:39 AM CDT CBC WITH AUTO DIFFERENTIAL Routine 10/07/2024 5:39 AM CDT DRUGS OF ABUSE SCREEN, URINE WITH REFLEX CONFIRMATION Routine 10/06/2024 10:40 AM CDT TRANSTHORACIC ECHO (TTE) COMPLETE W DOPPLER/CF WO CONTRAST Routine 10/06/2024 9:47 AM CDT BLOOD CULTURE Routine 10/06/2024 7:13 AM CDT EGFR Routine 10/06/2024 12:38 AM CDT DIFFERENTIAL AUTO Routine 10/06/2024 12: 38 AM CDT COMPREHENSIVE METABOLIC PANEL Routine 10/06/2024 12:38 AM CDT CBC WITH AUTO DIFFERENTIAL Routine 10/06/2024 12:38 AM CDT LACTATE Routine 10/06/2024 12:38 AM CDT PHOSPHORUS Routine 10/06/2024 12:38 AM CDT MAGNESIUM Routine 10/06/2024 12:38 AM CDT BLOOD CULTURE Routine 10/06/2024 12:38 AM CDT MAGNESIUM Routine 10/06/2024 12:37 AM CDT ECG 12-LEAD STAT 10/05/2024 10:17 PM CDT TROPONIN T HIGH-SENSITIVITY 6-HOUR Timed 10/05/2024 9:00 PM CDT TROPONIN T HIGH-SENSITIVITY 4-HR Timed 10/05/2024 7:25 PM CDT TROPONIN T HIGH-SENSITIVITY 2-HOUR Timed 10/05/2024 5:02 PM CDT ED CRITICAL CARE Routine 10/05/2024 3:48 PM CDT XR CHEST 1 VIEW ED 10/05/2024 3:42 PM CDT ECG 12-LEAD Routine 10/05/2024 3:31 PM CDT EGFR STAT 10/05/2024 3:26 PM CDT D-DIMER, QUANTITATIVE Add-On 10/05/2024 3:26 PM CDT DIFFERENTIAL AUTO STAT 10/05/2024 3:2 6 PM CDT TROPONIN T HIGH-SENSITIVITY SERIES (BASELINE, 2HR, 4HR, 6HR) STAT 10/05/2024 3:26 PM CDT COMPREHENSIVE METABOLIC PANEL STAT 10/05/2024 3:26 PM CDT CBC WITH AUTO DIFFERENTIAL STAT 10/05/2024 3:26 PM CDT ECG 12-LEAD STAT 10/05/2024 3:14 PM CDT from Last 3 Months Results * eGFR (10/07/2024 5:39 AM CDT) [facility] eGFR >90 >=60 mL/min/1. 73 m2 Comment: Interpretive Data Reference Interval Normal >/= 90 mL/min/1.73m2 Mildly decreased* 60 - 89 mL/min/1.73m2 Mildly to moderately decreased 45 - 59 mL/min/1.73m2 Moderately to severely decreased 30 - 44 mL/min/1.73m2 Severely decreased 15 - 29 mL/min/1.73m2 Kidney Failure < 15 mL/min/1.73m2 *Relative to young adult level Estimated glomerular filtration rate is determined by the 2020 CKD-EPI equation recommended by the National Kidney Foundation (A Unifying Approach to GFR Estimation: Recommendations of the NKF-ASK Task Force on Reassessing the Inclusion of Race in Diagnosing Kidney Disease, JASN 2020). The CKD-EPI equation should not be used for patients with unstable renal function and has not been validated in children and those over 70. Current interpretive data was last reviewed 2021. Blood 10/07/2024 5:39 AM CDT 10/07/2024 5:56 AM CDT us Domingo Bunn MD LAB BLOOD ORDERABLES Final Resu lt [facility] ([facility]) [address] [facility] Department [place] [address] * Differential, auto (10/07/2024 5:39 AM CDT) Pathologist [facility] Neutrophil abs 3.3 1.5 - 6.5 K/cumm Imm gran abs 0.0 0.0 - 0.1 K/cumm [facility] ([facility]) Lymphocyte abs 2.5 0.8 - 3.3 K/cumm [facility] ([facility]) Monocyte abs 0.6 0.2 - 0.8 K/cumm [facility] ([facility]) Eosinophil abs 0.1 0.0 - 0.5 K/cumm [facility] ([facility]) Basophil abs 0.0 0.0 - 0.1 K/cumm [facility] ([facility]) Neutrophil pct 50.2 % [facility] ([facility]) Comment: Interpretive Data Percent cell count reference ranges are not reported, since discordance with absolute values may lead to misinterpretation of CBC data. Current Interpretive Data was last revised on 2017. Imm gran pct 0.2 % [facility] ([facility]) Comment: Interpretive Data Percent cell count reference ranges are not reported, since discordance with absolute values may lead to misinterpretation of CBC data. Current Interpretive Data was last revised on 2017. Lymphocyte pct 38.3 % [facility] ([facility]) Comment: Interpretive Data Percent cell count reference ranges are not reported, since discordance with absolute values may lead to misinterpretation of CBC data. Current Interpretive Data was last revised on 2017. Monocyte pct 8.7 % [facility] ([facility]) Comment: Interpretive Data Percent cell count reference ranges are not reported, since discordance with absolute values may lead to misinterpretation of CBC data. Current Interpretive Data was last revised on 2017. Eosinophil pct 2.0 % [facility] ([facility]) Comment: Interpretive Data Percent cell count reference ranges are not reported, since discordance with absolute values may lead to misinterpretation of CBC data. Current Interpretive Data was last revised on 2017. Basophil pct 0.6 % [facility] ([facility]) Comment: Interpretive Data Percent cell count reference ranges are not reported, since discordance with absolute values may lead to misinterpretation of CBC data. Current Interpretive Data was last revised on 2017. Blood 10/07/2024 5:39 AM CDT 10/07/2024 5:56 AM CDT us Domingo Bunn MD LAB BLOOD ORDERABLES Final Resu lt [facility] ([facility]) 1 [facility] Department of Laboratories [place], [place] [address] * (ABNORMAL) CBC with auto differential (10/07/2024 5:39 AM CDT) WBC 6.5 3.8 - 9.9 K/cumm Hgb 12.3 11.9 - 15.5 g/dL [facility] ([facility]) Hct 37.0 35.6 - 45.5 % [facility] ([facility]) Plt 240 150 - 400 K/cumm [facility] ([facility]) MPV 9.6 9.1 - 12.3 fL [facility] ([facility]) RBC 4.06 3.90 - 5.20 M/cumm [facility] ([facility]) MCV 91.1 81.3 - 96.4 fL [facility] ([facility]) MCH 30.3 27.1 - 33.3 pg [facility] ([facility]) MCHC 33.2 32.3 - 35.7 g/dL [facility] ([facility]) RDW CV 14.4 11.1 - 14.9 % [facility] ([facility]) RDW SD 48.6(H) 35.7 - 48.1 fL [facility] ([facility]) NRBC abs 0.00 0.00 - 0.01 K/cumm [facility] ([facility]) Blood 10/07/2024 5:39 AM CDT 10/07/2024 5:56 AM CDT us Domingo Bunn MD LAB BLOOD ORDERABLES Final Resu lt [facility] ([facility]) [address] [facility] [place] [address] * Magnesium (10/07/2024 5:39 AM CDT) Magnesium 2.0 1.4 - 2.5 mg/dL Blood 10/07/2024 5:39 AM CDT 10/07/2024 5:56 AM CDT Domingo Bunn MD LAB BLOOD ORDERABLES Final Resu lt [facility] ([facility]) [address] [facility] [place] [address] * (ABNORMAL) Comprehensive metabolic panel (10/07/2024 5:39 AM CDT) Sodium 139 135 - 145 mmol/L Potassium, pl 3.9 3.3 - 4.9 mmol/L [facility] ([facility]) Chloride 108 97 - 110 mmol/L [facility] ([facility]) CO2 22 22 - 32 mmol/L [facility] ([facility]) Anion gap 9 2 - 15 mmol/L [facility] ([facility]) BUN 9 6 - 25 mg/dL [facility] ([facility]) Creatinine 0.60 0.60 - 1.10 mg/dL [facility] ([facility]) Glucose 95 70 - 199 mg/dL [facility] ([facility]) Comment: Interpretive Data Fasting glucose >/= 126 mg/dl is diagnostic for diabetes. Fasting is defined as no caloric intake for at least 8 hours. Fasting glucose between 100 mg/dl to 125 mg/dl is diagnostic of prediabetes. In a patient with classic symptoms of hyperglycemia or hyperglycemic crisis, a random glucose >/= 200 mg/dl is diagnostic for diabetes. In the absence of unequivocal hyperglycemia, results should be confirmed by repeat testing. The classification and Diagnosis of Diabetes Diabetes Care 2021; 46: S19-S40. Current interpretive data was last revised 2022. Calcium 8.8 8.5 - 10.3 mg/dL [facility] ([facility]) Bilirubin, total 0.2 0.1 - 1.2 mg/dL [facility] ([facility]) Protein, pl 6.2(L) 6.5 - 8.5 g/dL [facility] ([facility]) Albumin 3.7 3.5 - 5.0 g/dL [facility] ([facility]) Alk phos 108 40 - 130 Units/L [facility] ([facility]) ALT 11 7 - 45 Units/L [facility] ([facility]) AST 14 10 - 45 Units/L [facility] ([facility]) Blood 10/07/2024 5:39 AM CDT 10/07/2024 5:56 AM CDT us Domingo Bunn MD LAB BLOOD ORDERABLES Final Resu lt [facility] ([facility]) 1 [facility] Department [place] [address] * Drugs of Abuse Screen, Urine with Reflex Confirmation (10/06/2024 10:40 AM CDT) [facility] Amphetamine, ur Not Detected CutOff 500ng/mL Comment: Interpretive Data - Amphetamines: Samples containing greater than 500 ng/mL d-methamphetamine or other cross-reacting amphetamine compounds are reported as positive. Amphetamine immunoassays are subject to significant false positive rates due to cross-reactivity of non-amphetamine drugs. Confirmatory testing required for definitive results. Current Interpretive Data was last reviewed 2023. Barbiturates, ur Not Detected CutOff 200ng/mL [facility] ([facility]) Comment: Interpretive Data - Barbiturates: Samples containing greater than 200 ng/mL secobarbital or other cross-reacting barbiturate compounds are reported as positive. False positive and false negative results are possible. Confirmatory testing required for definitive results. Current Interpretive Data was last reviewed 2023. Benzodiazepines, ur Not Detected CutOff 100ng/mL [facility] ([facility]) Comment: Interpretive Data - Benzodiazepines: Samples containing greater than 100 ng/mL nordiazepam or other cross-reacting compounds are reported as positive. False positive and false negative results are possible. Confirmatory testing required for definitive results. Current Interpretive Data was last reviewed 2023. Cannabinoids, ur Not Detected CutOff 50 ng/mL [facility] ([facility]) Comment: Interpretive Data - Cannabinoids: Samples containing greater than 50 ng/mL delta-9 THC -COOH or other cross- reacting compounds are reported as positive. False positive and false negative results are possible. Confirmatory testing required for definitive results. Current Interpretive Data was last reviewed 2023. Cocaine, ur Not Detected CutOff 150ng/mL [facility] ([facility]) Comment: Interpretive Data - Cocaine: Samples containing greater than 150 ng/mL benzoylecgonine or other cross- reacting compounds are reported as positive. False positive and false negative results are possible. Confirmatory testing required for definitive results. Current Interpretive Data was last reviewed 2023. Fentanyl, Ur Not Detected CutOff 5 ng/mL [facility] ([facility]) Comment: Interpretive Data - Fentanyl: Samples containing greater than 5 ng/mL norfentanyl, fentanyl, or other cross-reacting fentanyl compounds are reported as positive. False positive and false negative results are possible. Confirmatory testing required for definitive results. Current Interpretive Data was last reviewed 2023. Methadone, ur Not Detected CutOff 300ng/mL [facility] ([facility]) Comment: Interpretive Data - Methadone: Samples containing greater than 300 ng/mL d,l-methadone or other cross-reacting compounds are reported as positive. False positive and false negative results are possible. Confirmatory testing required for definitive results. Current Interpretive Data was last reviewed 2023. Opiates, ur Not Detected CutOff 300ng/mL [facility] ([facility]) Comment: Interpretive Data - Opiates: Samples containing greater than 300 ng/mL morphine or other cross-reacting compounds are reported as positive. False positive and false negative results are possible. Confirmatory testing required for definitive results. Current Interpretive Data was last reviewed 2023. Oxycodone, ur Not Detected CutOff 100ng/mL [facility] ([facility]) Comment: Interpretive Data - Oxycodone: Samples containing greater than 100 ng/mL oxycodone or other cross-reacting compounds are reported as positive. False positive and false negative results are possible. Confirmatory testing required for definitive results. Current Interpretive Data was last reviewed 2023. Phencyclidine, ur Not Detected CutOff 25 ng/mL [facility] ([facility]) Comment: Interpretive Data - Phencyclidine: Samples containing greater than 25 ng/mL phencyclidine or other cross-reacting compounds are reported as positive. False positive and false negative results are possible. Confirmatory testing required for definitive results. Current Interpretive Data was last reviewed 2023. Urine Creatinine 58 mg/dL [facility] ([facility]) Comment: Interpretive Data Urine Creatinine: < 10 mg/dL is extremely dilute = or > 10 but < 20 mg/dL is dilute = or > 20 mg/dL is normal Current Interpretive Data was last revised on 2017. Urine 10/06/2024 10:4 0 AM CDT 10/06/2024 10:50 AM CDT Narrative [facility] ([facility]) - 10/06/2024 11:41 AM CDT Drug of Abuse screening is performed by immunoassay for medical purposes only. This is not to be used for Pain Management purposes. If Detected, confirmation testing will be performed for Amphetamines, Cocaine, Fentanyl, Methadone, Opiates, Oxycodone or Phencyclidine. us Domingo Bunn MD LAB URINE ORDERABLES Final Resu lt [facility] ([place]) [address] [place] [address] Department [place] [address] * TRANSTHORACIC ECHO (TTE) COMPLETE W DOPPLER/CF WO CONTRAST (10/06/2024 9:47 AM CDT) LV EF 68 % CONS SCIMAGE Anatomical Region Laterality Modality Ultrasound 10/06/2024 9:09 AM CDT Narrative 10/06/2024 11:22 AM CDT [address] [address] Echocardiogram Report Patient Name: LSELIE GARCIA : 1970 Study Date: 10/06/2024 9:09:16 AM Gender: F Tech: AA Location: [id number] Ref Provider: DOMINGO BUNN Height(Cm): BSA: Weight(Kg): Quality: Good Order Provider: DOMINGO BUNN PROCEDURES: Echocardiographic Report: Transthoracic echocardiogram with complete 2D, M-Mode, and color Doppler examination. INDICATIONS: Chest Pain. MEASUREMENTS: 2D/MM Value Range Doppler Value Range EF Teich 2D 61.9 % [ 54.0 - 74.0 ] JR Vmax 2.69 cm2 Estimated EF 68 % AV Mean PG 3 mmHg LVIDd 2D 4.52 cm [ 3.80 - 5.20 ] AV Peak Jose Alfredo 1.12 m/s [ 1.00 - 1.70 ] LVIDs 2D 3.02 cm [ 2.20 - 3.50 ] AV VTI 25.02 cm LVPWd 2D 1.30 cm [ 0.60 - 0.90 ] LVOT Diam 2.06 cm IVSd 2D 1.43 cm [ 0.60 - 0.90 ] LVOT Peak Jose Alfredo 0.90 m/s [ 0.70 - 1.10 ] LA Dimension MM 4.38 cm [ 2.70 - 3.80 ] LVOT VTI 22.89 cm AoR Diam MM 2.57 cm [ 2.70 - 3.70 ] MV E Peak Jose Alfredo 0.65 m/s [ 0.60 - 1.30 ] ACS MM 2.05 cm MV A Peak Jose Alfredo 0.51 m/s [ 1.00 - 1.20 ] MV Mean PG 1 mmHg MV PHT 42 msec [ 20 - 100 ] MVA 3.00 MV Decel Time 144 msec [ 104 - 258 ] PV Peak Jose Alfredo 0.77 m/s [ 0.40 - 0.80 ] DC Peak Jose Alfredo 0.84 m/s TR Peak Jose Alfredo 1.99 m/s [ 1.00 - 2.80 ] TR Peak PG 16 mmHg RVSP 21.00 mmHg [ 10.00 - 36.00 ] E` 0.10 m/s E/E` 6.62 [ <= 10.00 ] PA Pressure 5.00 mmHg [ 10.00 - 36.00 ] 2D/MM Value Range Doppler Value Range - FINDINGS: Atrial Septum: Normal atrial septum. Left Ventricle: Normal left ventricular systolic function with no focal wall motion abnormalities. Normal left ventricular size. Mild concentric left ventricular hypertrophy. Normal left ventricular diastolic function. Ejection Fraction is estimated to be 68 %. Left Atrium: The left atrium is normal in size. Right Ventricle: Normal right ventricular size. Normal right ventricular systolic function. Right Atrium: The right atrium is normal in size. Aortic Valve: Normal structure of the aortic valve. Mitral Valve: Trivial regurgitation of the mitral valve. Pulmonic Valve: Normal structure of the pulmonic valve. Tricuspid Valve: Normal right ventricular systolic pressure. Estimated peak RVSP is 25 mmHg. Mild tricuspid regurgitation. Pericardium: Normal pericardium with no significant pericardial effusion. Aorta: Normal aortic root. Sinus of Valsalva is normal. Aortic arch is normal. Descending aorta is normal. IVC: Normal size and normal respiratory collapse consistent with normal right atrial pressure (<5 mmHg). Pulmonary Artery: Normal pulmonary artery size. CONCLUSIONS: Normal left ventricular systolic function with no focal wall motion abnormalities. Normal left ventricular size. Mild concentric left ventricular hypertrophy. Normal left ventricular diastolic function. Ejection Fraction is estimated to be 68 %. Trivial regurgitation of the mitral valve. Normal right ventricular systolic pressure. Estimated peak RVSP is 25 mmHg. Mild tricuspid regurgitation. Electronically Signed By: Dallin Altman MD 10/06/2024 11:22:05 AM CDT Procedure Note Dallin Altman MD - 10/06/[address] [address] Echocardiogram Report Patient Name: LESLIE GARCIA : 1970 Study Date: 10/06/2024 9:09:16 AM Gender: F Tech: Location: [address] Provider: DOMINGO BUNN Height(Cm): BSA: Weight(Kg): Quality: Good Order Provider: DOMINGO BUNN PROCEDURES: Echocardiographic Report: Transthoracic echocardiogram with complete 2D, M-Mode, and color Dopplerexamination. INDICATIONS: Chest Pain. MEASUREMENTS: 2D/MM Value Range Doppler ValueRange EF Teich 2D 61.9 % [ 54.0 - 74.0 ] JR Vmax 2.69cm2 Estimated EF 68 % AV Mean PG 3 mmHg LVIDd 2D 4.52 cm [ 3.80 - 5.20 ] AV Peak Jose Alfredo 1.12 m/s[ 1.00 - 1.70 ] LVIDs 2D 3.02 cm [ 2.20 - 3.50 ] AV VTI 25.02cm LVPWd 2D 1.30 cm [ 0.60 - 0.90 ] LVOT Diam 2.06cm IVSd 2D 1.43 cm [ 0.60 - 0.90 ] LVOT Peak Jose Alfredo 0.90 m/s[ 0.70 - 1.10 ] LA Dimension MM 4.38 cm [ 2.70 - 3.80 ] LVOT VTI 22.89cm AoR Diam MM 2.57 cm [ 2.70 - 3.70 ] MV E Peak Jose Alfredo 0.65 m/s[ 0.60 - 1.30 ] ACS MM 2.05 cm MV A Peak Jose Alfredo 0.51 m/s[ 1.00 - 1.20 ] MV Mean PG 1 mmHg MV PHT 42 msec [ 20 - 100 ] MVA 3.00 MV Decel Time 144 msec [ 104 - 258 ] PV Peak Jose Alfredo 0.77 m/s [ 0.40 - 0.80 ] DC Peak Jose Alfredo 0.84 m/s TR Peak Jose Alfredo 1.99 m/s [ 1.00 - 2.80 ] TR Peak PG 16 mmHg RVSP 21.00 mmHg [ 10.00 - 36.00 ] E` 0.10 m/s E/E` 6.62 [ <= 10.00 ] PA Pressure 5.00 mmHg [ 10.00 - 36.00 ] 2D/MM Value Range Doppler ValueRange - FINDINGS: Atrial Septum: Normal atrial septum. Left Ventricle: Normal left ventricular systolic function with no focal wall motionabnormalities. Normal left ventricular size. Mild concentric left ventricular hypertrophy.Normal left ventricular diastolic function. Ejection Fraction is estimated to be 68%. Left Atrium: The left atrium is normal in size. Right Ventricle: Normal right ventricular size. Normal right ventricular systolicfunction. Right Atrium: The right atrium is normal in size. Aortic Valve: Normal structure of the aortic valve. Mitral Valve: Trivial regurgitation of the mitral valve. Pulmonic Valve: Normal structure of the pulmonic valve. Tricuspid Valve: Normal right ventricular systolic pressure. Estimated peak RVSP is 25mmHg. Mild tricuspid regurgitation. Pericardium: Normal pericardium with no significant pericardial effusion. Aorta: Normal aortic root. Sinus of Valsalva is normal. Aortic arch is normal.Descending aorta is normal. IVC: Normal size and normal respiratory collapse consistent with normal rightatrial pressure (<5 mmHg). Pulmonary Artery: Normal pulmonary artery size. CONCLUSIONS: Normal left ventricular systolic function with no focal wall motionabnormalities. Normal left ventricular size. Mild concentric left ventricular hypertrophy.Normal left ventricular diastolic function. Ejection Fraction is estimated to be 68%. Trivial regurgitation of the mitral valve. Normal right ventricular systolic pressure. Estimated peak RVSP is 25mmHg. Mild tricuspid regurgitation. Electronically Signed By: Dallin Altman MD 10/06/2024 11:22:05 AM CDT Domingo Bunn MD CV ECHO PROCEDURES Final Result * Blood culture Blood (10/06/2024 7:13 AM CDT) Report Final Report: No growth Comment:Testing performed by : [facility], [address] [place] [address] Blood 10/06/2024 7:13 AM CDT 10/06/2024 10:13 AM CDT [facility] ([facility]) - 10/10/2024 12:00 PM CDT From a different site than #1. Collection->Peripheral 1. Blood cultures are incubated for 4 days on a continuously monitored blood culture system. The first report of a negative culture is issued within 24 hours of receipt of the specimen in the laboratory. 2. Positive culture results are reported as soon as they are detected. 3. The most important factor for detection of microbes in the setting of bloodstream infection is the volume of blood submitted for culture. Failure to collect an optimal blood volume can result in false negative blood cultures. 4. For pediatric patients, the recommended blood volume to collect follows a weight based strategy. See the electronic test catalog for collection instructions. 5. For positive blood cultures, a rapid molecular test may be performed for organism identification using the hong [employer] blood culture identification panel for gram positive (BCID-GP) and gram negative (BCID-GN) organisms. This nucleic acid amplification test detects microbial DNA in positive blood culture broth. This assay has been cleared by the [place] Food and Drug Administration and its performance characteristics have been verified by the [facility]. For questions about this culture, contact the Microbiology Laboratory at [phone]. Interpretive data was last revised on 24. us Domingo Bunn MD LAB MICROBIOLOGY - GENERAL ORDE RABLES Final Result [facility] ([facility]) [address] [facility] [place] [address] * Lactate (10/06/2024 12:38 AM CDT) Lactate 1.2 0.7 - 2.0 mmol/L Blood 10/06/2024 12:3 8 AM CDT 10/06/2024 12:45 AM CDT us Domingo Bunn MD LAB BLOOD ORDERABLES Final Resu lt Performing Organization Address [facility] Co de Phone Number CRISTAL TAYLOR (ANIAK) 1 [facility] [place] [address] * eGFR (10/06/2024 12:38 AM CDT) eGFR >90 >=60 mL/min/1. 73 m2 Comment: Interpretive Data Reference Interval Normal >/= 90 mL/min/1.73m2 Mildly decreased* 60 - 89 mL/min/1.73m2 Mildly to moderately decreased 45 - 59 mL/min/1.73m2 Moderately to severely decreased 30 - 44 mL/min/1.73m2 Severely decreased 15 - 29 mL/min/1.73m2 Kidney Failure < 15 mL/min/1.73m2 *Relative to young adult level Estimated glomerular filtration rate is determined by the 2020 CKD-EPI equation recommended by the National Kidney Foundation (A Unifying Approach to GFR Estimation: Recommendations of the NKF-ASK Task Force on Reassessing the Inclusion of Race in Diagnosing Kidney Disease, JASN 202). The CKD-EPI equation should not be used for patients with unstable renal function and has not been validated in children and those over 70. Current interpretive data was last reviewed 2021. Blood 10/06/2024 12:3 8 AM CDT 10/06/2024 12:45 AM CDT us Domingo Bunn MD LAB BLOOD ORDERABLES Final Resu lt CRISTAL TAYLOR (ANIAK) 1 [facility] Department [place] [address] * (ABNORMAL) Differential, auto (10/06/2024 12:38 AM CDT) Neutrophil abs 4.5 1.5 - 6.5 K/cumm Imm gran abs 0.0 0.0 - 0.1 K/cumm [facility] (ANI) Lymphocyte abs 3.7(H) 0.8 - 3.3 K/cumm [facility] (ANI) Monocyte abs 0.7 0.2 - 0.8 K/cumm [facility] (ANI) Eosinophil abs 0.2 0.0 - 0.5 K/cumm [facility] (ANI) Basophil abs 0.1 0.0 - 0.1 K/cumm [facility] (ANI) Neutrophil pct 49.1 % [facility] (ANI) Comment: Interpretive Data Percent cell count reference ranges are not reported, since discordance with absolute values may lead to misinterpretation of CBC data. Current Interpretive Data was last revised on 2017. Imm gran pct 0.3 % [facility] (ANI) Comment: Interpretive Data Percent cell count reference ranges are not reported, since discordance with absolute values may lead to misinterpretation of CBC data. Current Interpretive Data was last revised on 2017. Lymphocyte pct 40.3 % [facility] (ANI) Comment: Interpretive Data Percent cell count reference ranges are not reported, since discordance with absolute values may lead to misinterpretation of CBC data. Current Interpretive Data was last revised on 2017. Monocyte pct 7.5 % [facility] (ANI) Comment: Interpretive Data Percent cell count reference ranges are not reported, since discordance with absolute values may lead to misinterpretation of CBC data. Current Interpretive Data was last revised on 2017. Eosinophil pct 2.2 % [facility] (ANI) Comment: Interpretive Data Percent cell count reference ranges are not reported, since discordance with absolute values may lead to misinterpretation of CBC data. Current Interpretive Data was last revised on 2017. Basophil pct 0.6 % [facility] (ANI) Comment: Interpretive Data Percent cell count reference ranges are not reported, since discordance with absolute values may lead to misinterpretation of CBC data. Current Interpretive Data was last revised on 2017. Blood 10/06/2024 12:3 8 AM CDT 10/06/2024 12:45 AM CDT us Domingo Bunn MD LAB BLOOD ORDERABLES Final Resu lt [facility] (ANI) 1 [facility] [place] [address] * (ABNORMAL) CBC with auto differential (10/06/2024 12:38 AM CDT) WBC 9.1 3.8 - 9.9 K/cumm Hgb 13.2 11.9 - 15.5 g/dL [facility] (ANI) Hct 39.9 35.6 - 45.5 % [facility] (ANI) Plt 250 150 - 400 K/cumm [facility] (ANI) MPV 9.8 9.1 - 12.3 fL [facility] (ANI) RBC 4.35 3.90 - 5.20 M/cumm [facility] (ANI) MCV 91.7 81.3 - 96.4 fL [facility] (ANI) MCH 30.3 27.1 - 33.3 pg [facility] (ANI) MCHC 33.1 32.3 - 35.7 g/dL [facility] (ANI) RDW CV 14.2 11.1 - 14.9 % [facility] (ANI) RDW SD 48.5(H) 35.7 - 48.1 fL [facility] (ANI) NRBC abs 0.00 0.00 - 0.01 K/cumm [facility] (ANI) Blood 10/06/2024 12:3 8 AM CDT 10/06/2024 12:45 AM CDT us Domingo Bunn MD LAB BLOOD ORDERABLES Final Resu lt Performing Organization Address City/[facility]/ZIP Co de Phone Number CRISTAL TAYLOR (ANI) 1 [facility] [address] [place] [address] * Blood culture Blood (10/06/2024 12:38 AM CDT) Report Final Report: No growth Comment:Testing performed by : [facility], [address] [place]., [address] Blood 10/06/2024 12:3 8 AM CDT 10/06/2024 5:03 AM CDT Narrative CRISTAL TAYLOR (ANI) - 10/10/2024 7:00 AM CDT Collection->Peripheral 1. Blood cultures are incubated for 4 days on a continuously monitored blood culture system. The first report of a negative culture is issued within 24 hours of receipt of the specimen in the laboratory. 2. Positive culture results are reported as soon as they are detected. 3. The most important factor for detection of microbes in the setting of bloodstream infection is the volume of blood submitted for culture. Failure to collect an optimal blood volume can result in false negative blood cultures. 4. For pediatric patients, the recommended blood volume to collect follows a weight based strategy. See the electronic test catalog for collection instructions. 5. For positive blood cultures, a rapid molecular test may be performed for organism identification using the hong ePlex blood culture identification panel for gram positive (BCID-GP) and gram negative (BCID-GN) organisms. This nucleic acid amplification test detects microbial DNA in positive blood culture broth. This assay has been cleared by the [place] Food and Drug Administration and its performance characteristics have been verified by the [facility] Microbiology Laboratory. For questions about this culture, contact the Microbiology Laboratory at [phone]. Interpretive data was last revised on 24. Domingo Bunn MD LAB MICROBIOLOGY - GENERAL ORDE RABLES Final Result CRISTAL DICKEY) 1 [facility] [employer] [place] [address] * Phosphorus (10/06/2024 12:38 AM CDT) Pathologist [facility] Phosphorus, pl 4.0 2.3 - 4.5 mg/dL Blood 10/06/2024 12:3 8 AM CDT 10/06/2024 12:45 AM CDT Domingo Bunn MD LAB BLOOD ORDERABLES Final Resu lt Performing Organization Address City/[facility]/ZIP Co de Phone Number CRISTAL TAYLOR (ANIAK) 1 [facility] [place] [address] * Magnesium (10/06/2024 12:38 AM CDT) [facility] Magnesium 2.1 1.4 - 2.5 mg/dL Blood 10/06/2024 12:3 8 AM CDT 10/06/2024 12:45 AM CDT Domingo Bunn MD LAB BLOOD ORDERABLES Final Resu lt Performing Organization Address City/[facility] de Phone Number CRISTAL TAYLOR (ANIAK) 1 [facility] [place] [address] * (ABNORMAL) Comprehensive metabolic panel (10/06/2024 12:38 AM CDT) [facility] Sodium 138 135 - 145 mmol/L Potassium, pl 3.9 3.3 - 4.9 mmol/L [facility] (ANI) Chloride 105 97 - 110 mmol/L [facility] (ANI) CO2 20(L) 22 - 32 mmol/L [facility] (ANI) Anion gap 14 2 - 15 mmol/L [facility] (ANI) BUN 8 6 - 25 mg/dL [facility] (ANI) Creatinine 0.63 0.60 - 1.10 mg/dL [facility] (ANI) Glucose 86 70 - 199 mg/dL [facility] (ANI) Comment: Interpretive Data Fasting glucose >/= 126 mg/dl is diagnostic for diabetes. Fasting is defined as no caloric intake for at least 8 hours. Fasting glucose between 100 mg/dl to 125 mg/dl is diagnostic of prediabetes. In a patient with classic symptoms of hyperglycemia or hyperglycemic crisis, a random glucose >/= 200 mg/dl is diagnostic for diabetes. In the absence of unequivocal hyperglycemia, results should be confirmed by repeat testing. The classification and Diagnosis of Diabetes Diabetes Care 2021; 46: S19-S40. Current interpretive data was last revised 2022. Calcium 8.7 8.5 - 10.3 mg/dL [facility] (ANI) Bilirubin, total <0.2 0.1 - 1.2 mg/dL [facility] (ANI) Protein, pl 6.1(L) 6.5 - 8.5 g/dL [facility] (ANI) Albumin 3.8 3.5 - 5.0 g/dL [facility] (ANI) Alk phos 119 40 - 130 Units/L [facility] (ANI) ALT 14 7 - 45 Units/L [facility] (ANI) AST 22 10 - 45 Units/L [facility] (ANI) Blood 10/06/2024 12:3 8 AM CDT 10/06/2024 12:45 AM CDT Domingo Bunn MD LAB BLOOD ORDERABLES Final Resu lt CRISTAL TAYLOR (ANIAK) 1 [facility] [address] [place] [address] * Magnesium (10/06/2024 12:37 AM CDT) Pathologist [facility] Magnesium 2.3 1.4 - 2.5 mg/dL Blood 10/06/2024 12:3 7 AM CDT 10/06/2024 12:45 AM CDT Domingo Bunn MD LAB BLOOD ORDERABLES Final Resu lt CRISTAL TAYLOR (ANIAK) 1 [facility] [employer] [place] [address] * ECG 12 lead (10/05/2024 10:17 PM CDT) 10/05/2024 10:1 7 PM CDT Narrative [facility] - 10/06/2024 6:28 AM CDT Vent Rate: 147 bpm RR Interval: 408 msec DC Interval: 142 msec QRS Duration: 82 msec QT Interval: 267 msec QTC Interval: 351 msec P-R-[employer]: 32 - 68 - 240 degrees IMPRESSION: SINUS TACHYCARDIA, POSSIBLE ATRIAL FLUTTER ST DEVIATION AND MODERATE T-WAVE ABNORMALITY, CONSIDER INFERIOR ISCHEMIA [-0.1+ mV T-WAVE IN II/aVF] ABNORMAL ECG Compared to prior EKG, heart rate has increased The patient is probably in atrial flutter ST segment changes Electronically Signed By: Dallin Altman MD us Domingo Bunn MD ECG ORDERABLES Final Result Performing Organization Address City/[facility]/ZIP Co de Phone Number [facility] [employer] [facility] * (ABNORMAL) Troponin T high-sensitivity 6-hour (10/05/2024 9:00 PM CDT) Trop T hs 15(H) <=14 ng/L Comment: Interpretive Data For further hscTnT resources including the diagnostic algorithm and an aid in interpretation, copy and paste this link: https://nrl.testcatalog.org/show/hsTrop Current Interpretive Data last revised 2020. Trop T hs delta -1 ng/L [facility] (ANI) Trop T hs interp Insignificant [facility] (ANI) Blood 10/05/2024 9:00 PM CDT 10/05/2024 9:03 PM CDT us Kana Valentine MD LAB BLOOD ORDERABLES Final R esult [facility] (ANI) 1 [facility] Department [place] [address] * (ABNORMAL) Troponin T high-sensitivity 4-hour (10/05/2024 7:25 PM CDT) Trop T hs 16(H) <=14 ng/L Comment: Interpretive Data For further hscTnT resources including the diagnostic algorithm and an aid in interpretation, copy and paste this link: https://nrl.testcatOmniVec.org/show/hsTrop Current Interpretive Data last revised 2020. Trop T hs delta 0 ng/L [facility] (ANI) Trop T hs interp Insignificant [facility] (ANI) Blood 10/05/2024 7:25 PM CDT 10/05/2024 7:29 PM CDT Kana Valentine MD LAB BLOOD ORDERABLES Final R esult Performing Organization Address City/[facility]/ZIP Co de Phone Number [facility] (ANI) 1 [facility] [place] [address] * (ABNORMAL) Troponin T high-sensitivity 2-hour (10/05/2024 5:02 PM CDT) Trop T hs 22(H) <=14 ng/L Comment: Interpretive Data For further hscTnT resources including the diagnostic algorithm and an aid in interpretation, copy and paste this link: https://nrl.testcatOmniVec.org/show/[email or web address] Current Interpretive Data last revised 2020. Trop T hs delta 6 ng/L [facility] (ANI) Trop T hs interp Equivocal [facility] (ANI) Blood 10/05/2024 5:02 PM CDT 10/05/2024 5:05 PM CDT Kana Valentine MD LAB BLOOD ORDERABLES Final R esult [facility] (ANI) 1 [facility] [place] [place] [address] * Critical Care (10/05/2024 3:48 PM CDT) Narrative Kana Valentine MD - 10/05/2024 3:48 PM CDT Kana Valentine MD 10/05/2024 3:49 PM Critical Care Performed by: Kana Valentine MD Authorized by: Kana aVlentine MD Critical care provider statement: As reflected in the history, physical exam, orders, notes, and/or MDM, I was personally present while the patient was critically ill and provided critical care services for 15 minutes, excluding time involved in separately billable procedures. Critical care was necessary to treat or prevent imminent or life-threatening deterioration of the following condition(s): tachy/jennifer arrhythmic event Critical care was time spent by me providing the following: initiation of rate controlling agent us Kana Valentine MD IN CLINIC/BEDSIDE ORDERABLES Final Result * XR Chest 1 Vw Portable (if patient condition/safety warrant portable) (10/05/2024 3:42 PM CDT) Anatomical Region Laterality Modality Body, Chest N/A Computed Radiogr aphy 10/05/2024 4:12 PM CDT Narrative 10/05/2024 4:14 PM CDT EXAM DESCRIPTION: XR CHEST 1 VIEW REASON FOR STUDY: chest pain Pt arrives to ED via POV for chest pain x 4 days. Pt was at her PCP today and they sent her here due to abnormal EKG, showing afib rvr. Pt c/o nausea. Pt denies cardiac hx, states hx of COPD. TECHNIQUE: Single radiographic view(s) of the chest. COMPARISON: Chest radiographs 12/26/2018 FINDINGS: The heart appears normal in size. No airspace consolidation or pleural effusion is seen. External pads and wires project over the chest. IMPRESSION: No radiographic evidence of acute cardiopulmonary disease THIS IS AN ELECTRONICALLY VERIFIED FINAL REPORT 10/05/2024 4:14 PM - Electronically signed by Remington Smith M.D. JR: Report ID: [id number] Reading Location: [id number] Procedure Note Remington Smith MD - 10/05/2024 EXAM DESCRIPTION: XR CHEST 1 VIEW REASON FOR STUDY: chest pain Pt arrives to ED via POV for chest pain x 4 days. Pt was at her PCP todayand they sent her here due to abnormal EKG, showing afib rvr. Pt c/o nausea.Pt denies cardiac hx, states hx of COPD. TECHNIQUE: Single radiographic view(s) of the chest. COMPARISON: Chest radiographs 12/26/2018 FINDINGS: The heart appears normal in size. No airspace consolidation or pleural effusion is seen. External pads and wires project over the chest. IMPRESSION: No radiographic evidence of acute cardiopulmonary disease THIS IS AN ELECTRONICALLY VERIFIED FINAL REPORT 10/05/2024 4:14 PM - Electronically signed by Remington Smith M.D. JR: Report ID: [id number] Reading Location: [id number] Kana Valentine MD IMG XR PROCEDURES Final Resu lt * ECG 12 lead (10/05/2024 3:31 PM CDT) 10/05/2024 3:31 PM CDT Narrative [facility] - 10/06/2024 6:32 AM CDT Vent Rate: 73 bpm RR Interval: 814 msec DC Interval: 117 msec QRS Duration: 98 msec QT Interval: 371 msec QTC Interval: 397 msec P-[employer]: 57 - 71 - 67 degrees IMPRESSION: SINUS RHYTHM WITH SHORT DC INTERVAL BORDERLINE ECG Compared to prior EKG, heart rate has decreased Sinus rhythm is now present ST segment depressions are no longer present Electronically Signed By: Dallin Altman MD Kana Valentine MD ECG ORDERABLES Final Result [facility] * (ABNORMAL) Troponin T high-sensitivity series (baseline, 2hr, 4hr, 6hr) (10/05/2024 3:26 PM CDT) Trop T hs 16(H) <=14 ng/L Comment: Interpretive Data For further hscTnT resources including the diagnostic algorithm and an aid in interpretation, copy and paste this link: https://nrl.testcatalog.org/show/hsTrop Current Interpretive Data last revised 2020. Blood 10/05/2024 3:26 PM CDT 10/05/2024 3:32 PM CDT Kana Valentine MD LAB BLOOD ORDERABLES Final R esult Performing Organization Address City/[facility]/ZIP Co de Phone Number CRISTAL TAYLOR (ANIAK) [address] [place] [address] [place] [address] * eGFR (10/05/2024 3:26 PM CDT) eGFR >90 >=60 mL/min/1. 73 m2 Comment: Interpretive Data Reference Interval Normal >/= 90 mL/min/1.73m2 Mildly decreased* 60 - 89 mL/min/1.73m2 Mildly to moderately decreased 45 - 59 mL/min/1.73m2 Moderately to severely decreased 30 - 44 mL/min/1.73m2 Severely decreased 15 - 29 mL/min/1.73m2 Kidney Failure < 15 mL/min/1.73m2 *Relative to young adult level Estimated glomerular filtration rate is determined by the 2020 CKD-EPI equation recommended by the National Kidney Foundation (A Unifying Approach to GFR Estimation: Recommendations of the NKF-ASK Task Force on Reassessing the Inclusion of Race in Diagnosing Kidney Disease, JASN 202). The CKD-EPI equation should not be used for patients with unstable renal function and has not been validated in children and those over 70. Current interpretive data was last reviewed 2021. Blood 10/05/2024 3:26 PM CDT 10/05/2024 3:32 PM CDT Kana Valentine MD LAB BLOOD ORDERABLES Final R esult [facility] (ANIAK) 1 [facility] [employer] [place] [address] * (ABNORMAL) Differential, auto (10/05/2024 3:26 PM CDT) Neutrophil abs 7.5(H) 1.5 - 6.5 K/cumm Imm gran abs 0.1 0.0 - 0.1 K/cumm [facility] (ANI) Lymphocyte abs 4.7(H) 0.8 - 3.3 K/cumm [facility] (ANI) Monocyte abs 1.0(H) 0.2 - 0.8 K/cumm [facility] (ANI) Eosinophil abs 0.2 0.0 - 0.5 K/cumm [facility] (ANI) Basophil abs 0.1 0.0 - 0.1 K/cumm [facility] (ANI) Neutrophil pct 54.9 % [facility] (ANI) Comment: Interpretive Data Percent cell count reference ranges are not reported, since discordance with absolute values may lead to misinterpretation of CBC data. Current Interpretive Data was last revised on 2017. Imm gran pct 0.5 % [facility] (ANI) Comment: Interpretive Data Percent cell count reference ranges are not reported, since discordance with absolute values may lead to misinterpretation of CBC data. Current Interpretive Data was last revised on 2017. Lymphocyte pct 34.8 % [facility] (ANI) Comment: Interpretive Data Percent cell count reference ranges are not reported, since discordance with absolute values may lead to misinterpretation of CBC data. Current Interpretive Data was last revised on 2017. Monocyte pct 7.3 % [facility] (ANI) Comment: Interpretive Data Percent cell count reference ranges are not reported, since discordance with absolute values may lead to misinterpretation of CBC data. Current Interpretive Data was last revised on 2017. Eosinophil pct 1.8 % [facility] (ANI) Comment: Interpretive Data Percent cell count reference ranges are not reported, since discordance with absolute values may lead to misinterpretation of CBC data. Current Interpretive Data was last revised on 2017. Basophil pct 0.7 % [facility] (ANI) Comment: Interpretive Data Percent cell count reference ranges are not reported, since discordance with absolute values may lead to misinterpretation of CBC data. Current Interpretive Data was last revised on 2017. Blood 10/05/2024 3:26 PM CDT 10/05/2024 3:32 PM CDT Knaa Valentine MD LAB BLOOD ORDERABLES Final R esult [facility] (ANI) 1 [facility] Department [place] [address] * (ABNORMAL) CBC with auto differential (10/05/2024 3:26 PM CDT) Pathologist [facility] WBC 13.6(H) 3.8 - 9.9 K/cumm Hgb 14.0 11.9 - 15.5 g/dL [facility] (ANI) Hct 42.0 35.6 - 45.5 % [facility] (ANI) Plt 286 150 - 400 K/cumm [facility] (ANI) MPV 9.6 9.1 - 12.3 fL [facility] (ANI) RBC 4.63 3.90 - 5.20 M/cumm [facility] (ANI) MCV 90.7 81.3 - 96.4 fL [facility] (ANI) MCH 30.2 27.1 - 33.3 pg [facility] (ANI) MCHC 33.3 32.3 - 35.7 g/dL [facility] (ANI) RDW CV 14.2 11.1 - 14.9 % [facility] (ANI) RDW SD 47.7 35.7 - 48.1 fL [facility] (ANI) NRBC abs 0.00 0.00 - 0.01 K/cumm [facility] Blood Venous blood specimen / Unknown 10/05/2024 3:26 PM CDT 10/05/2024 3:32 PM CDT Kana Valentine MD LAB BLOOD ORDERABLES Final R esult [facility] (ANI) 1 [facility] Department [place] [address] * D-dimer, quantitative (10/05/2024 3:26 PM CDT) [facility] D-Dimer 468 <=499 ng/mL FEU [facility] (ANI) Comment: Interpretive data FDA approved the D-dimer, in conjunction with a low or moderate pretest probability score, to exclude venous thromboembolic events (VTE) (PE and DVT) in outpatients when the D-dimer result is < 500 ng/ml FEU. Evidence supports using an age-adjusted D-dimer cut-off for outpatients older than 50 (age x 10) to improve specificity without sacrificing sensitivity. Example: age 68, VTE cut-off 680 ng/ml FEU. References; Schandres HT et al. Brit Med J. 2013;346:f2492. Eldon et al. Annals Int Med. 2015;163:701-11. Current interpretive data was last revised on 2019. Blood 10/05/2024 3:26 PM CDT 10/05/2024 3:50 PM CDT Kana Valentine MD LAB BLOOD ORDERABLES Final R esult [facility] (ANIAK) 1 [facility] Department of Laboratories [place], [place] [id number] * (ABNORMAL) Comprehensive metabolic panel (10/05/2024 3:26 PM CDT) Pathologist [facility] Sodium 132(L) 135 - 145 mmol/L Potassium, pl 3.8 3.3 - 4.9 mmol/L [facility] (ANI) Chloride 99 97 - 110 mmol/L [facility] (ANI) CO2 22 22 - 32 mmol/L [facility] (ANI) Anion gap 12 2 - 15 mmol/L [facility] (ANI) BUN 7 6 - 25 mg/dL [facility] (ANI) Creatinine 0.68 0.60 - 1.10 mg/dL [facility] ([facility] Glucose 93 70 - 199 mg/dL [facility] (ANI) Comment: Interpretive Data Fasting glucose >/= 126 mg/dl is diagnostic for diabetes. Fasting is defined as no caloric intake for at least 8 hours. Fasting glucose between 100 mg/dl to 125 mg/dl is diagnostic of prediabetes. In a patient with classic symptoms of hyperglycemia or hyperglycemic crisis, a random glucose >/= 200 mg/dl is diagnostic for diabetes. In the absence of unequivocal hyperglycemia, results should be confirmed by repeat testing. The classification and Diagnosis of Diabetes Diabetes Care 2021; 46: S19-S40. Current interpretive data was last revised 2022. Calcium 8.7 8.5 - 10.3 mg/dL [facility] (ANI) Bilirubin, total <0.2 0.1 - 1.2 mg/dL [facility] (ANI) Protein, pl 6.7 6.5 - 8.5 g/dL [facility] (ANI) Albumin 4.1 3.5 - 5.0 g/dL [facility] (ANI) Alk phos 130 40 - 130 Units/L [facility] (ANI) ALT 14 7 - 45 Units/L [facility] (ANI) AST 21 10 - 45 Units/L [facility] (ANI) Comment:Slightly Hemolyzed S pecimen Blood 10/05/2024 3:26 PM CDT 10/05/2024 3:32 PM CDT us Kana Valentine MD LAB BLOOD ORDERABLES Final R esult [facility] (ANI) 1 [facility] Department [place] [address] * ECG 12 lead (10/05/2024 3:14 PM CDT) 10/05/2024 3:14 PM CDT Narrative [facility] - 10/05/2024 3:38 PM CDT Vent Rate: 178 bpm RR Interval: 336 msec DC Interval: 0 msec QRS Duration: 81 msec QT Interval: 254 msec QTC Interval: 348 msec P-[employer]: [id number] - 68 - 242 degrees IMPRESSION: SUPRAVENTRICULAR TACHYCARDIA ST DEVIATION AND MODERATE T-WAVE ABNORMALITY, CONSIDER INFERIOR ISCHEMIA [-0.1+ mV T-WAVE IN II/aVF] CRITICAL TEST RESULT Compared to prior EKG, heart rate has increased ST segment depressions are new SVT replaced sinus rhythm Electronically Signed By: Dallin Altman MD Kana Valentine MD ECG ORDERABLES Final Result [facility] from Last 3 Months Insurance [facility] Advance Directives For more information, please contact: [phone] * Full Code (Latest Code Status on File) Date Activated Date Inactivated Comments 10/05/2024 5:17 PM 10/07/2024 5:14 PM * Full Code Date Activated Date Inactivated Comments 04/29/2019 2:09 AM 04/29/2019 11:23 PM * Full Code Date Activated Date Inactivated Comments 10/08/2017 7:52 AM 10/09/2017 10:17 PM Healthcare Agents on File Name Relationship [facility] Malone Mother [facility] Care Agent Care Teams Network Administrator Relationship Specialty Start Date End Date Unknown, Notinfile PCP - General 04/30/19
--- OUTSIDE RECORDS SUMMARY | 2024-12-31 | XMS_ITS ---
Author Organization Unknown Address [address] [place] [address] [phone] Phone Care Team Providers Care [employer] Operator Name Role Phone ОЛЬГА BEREKET Gregory Attending Unavailable DARRYL Latif Primary Unavailable Social History Type Status Start Date End Date Code Code Syst em Smoking History Current every day smoker [id number] SNOMED CT Sex Female Hospital Discharge Instructions Should you have any questions prior to discharge, please contact a member of your healthcare team. If you have left the hospital and have any questions, please contact your primary care physician. Reason For Referral No Data Found Plan of Treatment Stress Test Treadmill 04/19/2022 Encounters Encounter Diagnosis Start Date Code Code Sys tem Unilateral primary osteoarthritis, left knee 4 SNOMED-CT Personal Care Team Section Performer Name Performer Role Active Date Inactive Da JOSSIE Herrera PCP - Primary care physician 2022-04-19
--- OUTSIDE RECORDS SUMMARY | 2024-12-31 | XMS_ITS | Clinical Summary ---
Author Organization [facility] Address [address] [place] [address] Care Team Providers Care Composition Roofer Name Role Phone Unknown, Notinfile Primary Care Provider Unavail able Allergies Active Allergy Reactions Criticality Noted Date [...] total) by mouth daily 30 capsule 1 5 Active Active Problems Problem Noted Date Diagnosed Date Chest pain, unspecified type 10/05/2024 Calculus of gallbladder 04/29/2019 Suicidal behavior with attempted self-injury Intentional drug overdose 10/08/2017 SVT (supraventricular tachycardia) 10/08/2017 COPD (chronic obstructive pulmonary disease) Depression with suicidal ideation 01/25/2017 Iron deficiency anemia 01/25/2017 Tobacco abuse 01/25/2017 Major depression, recurrent 01/25/2017 Suicide attempt by substance overdose Encounters Date Type Department Care Team Description 10/08/2024 [facility] Post Discharge Follow up phone call [facility] Medical Care [address] [place] [address] Kizzy Stephanie Erica 10/05/2024 3:20 PM CDT - 10/07/2024 1:09 PM CDT Hospital Encounter [facility] Acute Medicine [address] [place] [address] Kana Valentine MD Nations, DO Dusty Ortiz Chandni, MD SVT (supraventricular tachycardia) (Primary Dx); Chest pain, unspecified type Discharge Disposition: Discharge to home or self care from Last 3 Months Surgical History Surgery Date Site/Laterality Comments HYSTERECTOMY CHOLECYSTECTOMY 04/29/2019 Medical History Medical History Date Comments Hypertension Emphysema of lung (HCC) Peptic ulceration Depression Hypercholesteremia Gallstones Renal disorder kidney stones Family History Medical History Relation Name Comments Cancer Father Stroke Father Hypertension Mother Relation Name Status Comments Father Mother Social History Tobacco Use Types Packs/Day Years [...] on file Legal Sex Female 5:37 PM [employer] Gender Identity Not on file Sexual Orientation Not on file Obstetrics History Last Filed Vital Signs Vital Sign Reading [...] 10/05/2024 6:50 PM CDT Plan of Treatment Health Maintenance Due Date Last Done Comments Breast Cancer Screening-Mammogram 1972 Colon Cancer Screening-Colonoscopy 1972 Depression Screening 1972 Hepatitis C Screening 1972 DTaP/Tdap/Td Vaccine (1 - Tdap) 1983 Hepatitis B Screening 1990 Regular Well Visit/Exam 18-64 1990 Pneumococcal vaccine <65 (1 of 2 - PCV) 1991 Zoster Vaccine (1 of 2) 2022 Influenza Vaccine (Season Ended) 2025 Procedures Procedure Name Priority Date/Time Associated Diagnosis [...] Results * eGFR (10/07/2024 5:39 AM CDT) eGFR >90 >=60 mL/min/1. 73 [...] BLOOD ORDERABLES Final Resu lt [facility] [place]) 1 [facility] Department [place] [address] * Differential, auto (10/07/2024 5:39 AM CDT) Neutrophil abs 3.3 1.5 - 6.5 K/cumm Imm gran abs 0.0 0.0 - 0.1 K/cumm [facility] ([place]) Lymphocyte abs 2.5 0.8 - 3.3 K/cumm [facility] ([place]) Monocyte abs 0.6 0.2 - 0.8 K/cumm [facility] ([place]) Eosinophil abs 0.1 0.0 - 0.5 K/cumm [facility] ([place]) Basophil abs 0.0 0.0 - 0.1 K/cumm [facility] ([place]) Neutrophil pct 50.2 % [facility] ([place]) Comment: Interpretive [...] revised on 2017. Monocyte pct 8.7 % [facility] ([place]) Comment: Interpretive Data [...] Final Resu lt [facility] ([place]) 1 [facility] [place] [address] * (ABNORMAL) CBC with auto differential (10/07/2024 5:39 AM CDT) WBC 6.5 3.8 - 9.9 K/cumm Hgb 12.3 11.9 - 15.5 g/dL [facility] ([place]) Hct 37.0 35.6 - 45.5 % [...] Final Resu lt [facility] ([place]) [address] [facility] [place] [address] * Magnesium (10/07/2024 5:39 AM CDT) Magnesium 2.0 1.4 - 2.5 mg/dL Blood 10/07/2024 5:39 AM CDT 10/07/2024 5:56 AM CDT us Domingo Bunn MD LAB BLOOD ORDERABLES Final Resu lt [facility] ([place]) 1 [facility] Department [place] [address] * (ABNORMAL) Comprehensive metabolic panel (10/07/2024 5:39 AM CDT) Sodium 139 135 - 145 mmol/L Potassium, pl 3.9 3.3 - 4.9 mmol/L [facility] ([place]) Chloride 108 97 - 110 mmol/L [facility] CO2 22 22 - 32 mmol/L [facility] ([place]) Anion gap 9 2 - 15 mmol/L [facility] ([place]) BUN 9 6 - 25 mg/dL [facility] Creatinine 0.60 0.60 - 1.10 mg/dL [facility] ([facility]) Glucose 95 70 - 199 mg/dL [facility] ([facility] Comment: Interpretive Data Fasting glucose [...] BLOOD ORDERABLES Final Resu lt [facility] ([place]) 1 [facility] Department [place] [address] * Drugs of Abuse Screen, Urine with Reflex Confirmation (10/06/2024 10:40 AM CDT) Amphetamine, ur Not Detected CutOff 500ng/mL Comment: [...] 2023. Methadone, ur Not Detected CutOff 300ng/mL [facility] ([place]) Comment: Interpretive Data - Methadone: Samples containing greater than 300 ng/mL d,l-methadone or other cross-reacting compounds are reported as positive. False positive and false negative results are possible. Confirmatory testing required for definitive results. Current Interpretive Data was last reviewed 2023. Opiates, ur Not Detected CutOff 300ng/mL [facility] ([place]) Comment: Interpretive Data - Opiates: Samples containing greater than 300 ng/mL morphine or other cross-reacting compounds are reported as positive. False positive and false negative results are possible. Confirmatory testing required for definitive results. Current Interpretive Data was last reviewed 2023. Oxycodone, ur Not Detected CutOff 100ng/mL [facility] ([place]) Comment: Interpretive Data - Oxycodone: Samples containing greater than 100 ng/mL oxycodone or other cross-reacting compounds are reported as positive. False positive and false negative results are possible. Confirmatory testing required for definitive results. Current Interpretive Data was last reviewed 2023. Phencyclidine, ur Not Detected CutOff 25 ng/mL [facility] ([place]) Comment: Interpretive Data - Phencyclidine: Samples containing greater than 25 ng/mL phencyclidine or other cross-reacting compounds are reported as positive. False positive and false negative results are possible. Confirmatory testing required for definitive results. Current Interpretive Data was last reviewed 2023. Urine Creatinine 58 mg/dL [facility] ([place]) Comment: Interpretive Data Urine Creatinine: < 10 mg/dL is extremely dilute = or > 10 but < 20 mg/dL is dilute = or > 20 mg/dL is normal Current Interpretive Data was last revised on 2017. Urine 10/06/2024 10:4 0 AM CDT 10/06/2024 10:50 AM CDT Narrative [facility] ([place]) - 10/06/2024 11:41 AM CDT Drug of Abuse screening is performed by immunoassay for medical purposes only. This is not to be used for Pain Management purposes. If Detected, confirmation testing will be performed for Amphetamines, Cocaine, Fentanyl, Methadone, Opiates, Oxycodone or Phencyclidine. us Domingo Bunn MD LAB URINE ORDERABLES Final Resu lt [facility] ([place]) [address] [place] [address] Department [place] [address] * TRANSTHORACIC ECHO (TTE) COMPLETE W DOPPLER/CF WO CONTRAST (10/06/2024 9:47 AM CDT) LV EF 68 % CONS SCIMAGE Anatomical Region Laterality Modality Ultrasound 10/06/2024 9:09 AM CDT Narrative 10/06/2024 11:22 AM CDT [address] [address] Echocardiogram Report Patient Name: LESLIE GARCIA : 1970 Study Date: 10/06/2024 9:09:16 AM Gender: F Tech: AA Location: [id number] Ref Provider: DOMINGO BUNN Height(Cm): BSA: Weight(Kg): [...] 0.77 m/s [ 0.40 - 0.80 ] [place] Peak Jose Alfredo 0.84 m/s TR Peak [...] Procedure Note Dallin Altman MD - 10/06/[address] [address] Echocardiogram Report Patient Name: LESLIE GARCIA : 1970 Study Date: 10/06/2024 9:09:16 AM Gender: F Tech: Location: [place] [address] Ref Provider: DOMINGO BUNN Height(Cm): BSA: Weight(Kg): [...] 0.77 m/s [ 0.40 - 0.80 ] [place] Peak Jose Alfredo 0.84 m/s TR Peak [...] Report: No growth Comment:Testing performed by : [facility], 1 [facility] [place]., [address] Blood 10/06/2024 7:13 AM CDT 10/06/2024 10:13 [...] performance characteristics have been verified by the [facility] Microbiology Laboratory. For questions about this culture, contact the Microbiology Laboratory at [phone]. Interpretive data was last revised on 24. Domingo Bunn MD LAB MICROBIOLOGY - [facility] Final Result Performing Organization Address City/[facility]/ZIP Co de Phone Number [facility] ([place]) 1 [facility] Department [place] [address] * Lactate (10/06/2024 12:38 AM CDT) Pathologist [facility] Lactate 1.2 0.7 - 2.0 mmol/L Blood 10/06/2024 12:3 8 AM CDT 10/06/2024 12:45 AM CDT Domingo Bunn MD LAB BLOOD ORDERABLES Final Resu lt Performing Organization Address City/[facility]/ZIP Co de Phone Number [facility] ([place]) 1 [facility] [place] [address] * eGFR (10/06/2024 12:38 AM CDT) Pathologist [facility] eGFR >90 >=60 mL/min/1. 73 m2 Comment: [...] BLOOD ORDERABLES Final Resu lt [facility] ([place]) 1 [facility] Department [place] [address] * (ABNORMAL) Differential, auto (10/06/2024 12:38 AM [...] MD LAB BLOOD ORDERABLES Final [facility] 1 [facility] Department [place] [address] * (ABNORMAL) CBC with auto differential (10/06/2024 [...] (ANI) MCV 91.7 81.3 - 96.4 fL [facility] ([place]) MCH 30.3 27.1 - 33.3 pg [facility] ([place]) MCHC 33.1 32.3 - 35.7 g/dL [facility] ([place]) RDW CV 14.2 11.1 - 14.9 % [facility] ([place]) RDW SD 48.5(H) 35.7 - 48.1 fL [facility] ([place]) NRBC abs 0.00 0.00 - 0.01 K/cumm [facility] ([place]) Blood 10/06/2024 12:3 8 AM CDT 10/06/2024 12:45 AM CDT us Domingo Bunn MD LAB BLOOD ORDERABLES Final Resu lt [facility] ([place]) 1 [facility] Department [place] [address] * Blood culture Blood (10/06/2024 12:38 AM CDT) Report Final Report: No growth Comment:Testing performed by : [facility], 1 [facility], [place]., [address] Blood 10/06/2024 12:3 8 AM CDT 10/06/2024 [...] performance characteristics have been verified by the [facility] Microbiology Laboratory. For questions about this culture, contact the Microbiology Laboratory at [phone]. Interpretive data was last revised on 24. Domingo Bunn MD LAB MICROBIOLOGY - [facility] Final Result [facility] ([place]) [address] [facility] [place] [address] * Phosphorus (10/06/2024 12:38 AM CDT) Pathologist [facility] Phosphorus, pl 4.0 2.3 - 4.5 mg/dL Blood 10/06/2024 12:3 8 AM CDT 10/06/2024 12:45 AM CDT Domingo Bunn MD LAB BLOOD ORDERABLES Final Resu lt Performing Organization Address City/[facility] Co de Phone Number [facility] ([place]) [address] [facility] [place] [address] * Magnesium (10/06/2024 12:38 AM CDT) Pathologist [facility] Magnesium 2.1 1.4 - 2.5 mg/dL Blood 10/06/2024 12:3 8 AM CDT 10/06/2024 12:45 AM CDT Domingo Bunn MD LAB BLOOD ORDERABLES Final Resu lt [facility] ([place]) [address] [facility] [place] [address] * (ABNORMAL) Comprehensive metabolic panel (10/06/2024 12:38 AM CDT) Sodium 138 135 - 145 mmol/L Potassium, pl 3.9 3.3 - 4.9 mmol/L [facility] ([place]) Chloride 105 97 - 110 mmol/L [facility] ([place]) CO2 20(L) 22 - 32 mmol/L [facility] ([place]) Anion gap 14 2 - 15 mmol/L [facility] ([place]) BUN 8 6 - 25 mg/dL [facility] ([place]) Creatinine 0.63 0.60 - 1.10 mg/dL [facility] ([place]) Glucose 86 70 - 199 mg/dL [facility] ([place]) [...] MD LAB BLOOD ORDERABLES Final Resu lt [facility] ([place] [address] Department [place] [address] * Magnesium (10/06/2024 12:37 AM CDT) Magnesium 2.3 1.4 - 2.5 mg/dL Blood 10/06/2024 12:3 7 AM CDT 10/06/2024 12:45 AM CDT Domingo Bunn MD LAB BLOOD ORDERABLES Final Resu lt [facility] ([place]) 1 [facility] [place] [address] * ECG 12 lead (10/05/2024 10:17 PM CDT) 10/05/2024 10:1 7 PM CDT Narrative [facility] - 10/06/2024 6:28 AM CDT Vent Rate: 147 bpm RR Interval: 408 msec [place] Interval: 142 msec QRS Duration: 82 msec QT Interval: 267 msec QTC Interval: 351 msec P-R-T [place]: 32 - 68 - 240 degrees IMPRESSION: SINUS TACHYCARDIA, POSSIBLE ATRIAL FLUTTER ST DEVIATION AND MODERATE T-WAVE ABNORMALITY, CONSIDER INFERIOR ISCHEMIA [-0.1+ mV T-WAVE IN II/aVF] ABNORMAL ECG Compared to prior EKG, heart rate has increased The patient is probably in atrial flutter ST segment changes Electronically Signed By: Dallin Altman MD Domingo Bunn MD ECG ORDERABLES Final Result Performing Organization Address [facility]/ZIP Co de Phone Number [employer] [facility] [[email or web address]] * (ABNORMAL) Troponin T high-sensitivity 6-hour (10/05/2024 [...] 9:00 PM CDT 10/05/2024 9:03 PM CDT Kana Valentine MD LAB BLOOD ORDERABLES Final R esult [facility] ([place]) [address] [facility] [place] [address] * (ABNORMAL) Troponin T high-sensitivity 4-hour (10/05/2024 7:25 PM CDT) Trop T hs 16(H) <=14 ng/L Comment: Interpretive Data For further hscTnT resources including the diagnostic algorithm and an aid in interpretation, copy and paste this link: https://nrl.[employer].org/show/hsTrop Current Interpretive Data last revised 2020. Trop T hs delta 0 ng/L [facility] ([place]) Trop T hs interp Insignificant [facility] ([place]) Blood 10/05/2024 7:25 PM CDT 10/05/2024 7:29 PM CDT us Kana Valentine MD LAB BLOOD ORDERABLES Final R esult [facility] ([place]) 1 [facility] [place] [address] * (ABNORMAL) Troponin T high-sensitivity 2-hour (10/05/2024 5:02 PM CDT) Trop T hs 22(H) <=14 ng/L Comment: Interpretive Data For further hscTnT resources including the diagnostic algorithm and an aid in interpretation, copy and paste this link: https://nrl.[employer].org/show/hsTrop Current Interpretive Data last revised 2020. Trop T hs delta 6 ng/L [facility] ([place]) Trop T hs interp Equivocal [facility] ([place]) Blood 10/05/2024 5:02 PM CDT 10/05/2024 5:05 PM CDT Kana Valentine MD LAB BLOOD ORDERABLES Final R esult [facility] ([place]) 1 [facility] Department [place] [address] * Critical Care (10/05/2024 3:48 PM CDT) Narrative Kana Valentine MD - 10/05/2024 3:48 PM CDT Kana Valentine MD 10/05/2024 3:49 PM Critical Care Performed by: Kana Valentine MD Authorized by: Kana Valentine MD Critical care provider statement: As reflected [...] the following: initiation of rate controlling agent Kana Valentine MD IN CLINIC/BEDSIDE ORDERABLES Final [...] by Remington Smith M.D. JR: Report ID: [id number] Reading Location: [id number] Procedure Note Remington Smith MD - 10/05/2024 [...] by Remington Smith M.D. JR: Report ID: [id number] Reading Location: [id number] us Kana Valentine MD IMG XR PROCEDURES Final Resu lt * ECG 12 lead (10/05/2024 3:31 PM CDT) 10/05/2024 3:31 PM CDT Narrative [facility] - 10/06/2024 6:32 AM CDT Vent Rate: 73 bpm RR Interval: 814 msec WY Interval: 117 msec QRS Duration: 98 msec QT Interval: 371 msec QTC Interval: 397 msec P-R-T [place]: 57 - 71 - 67 degrees IMPRESSION: SINUS RHYTHM WITH SHORT WY INTERVAL BORDERLINE ECG Compared to prior EKG, heart rate has decreased Sinus rhythm is now present ST segment depressions are no longer present Electronically Signed By: Dallin Altman MD Kana Valentine MD ECG ORDERABLES Final Result [facility] * (ABNORMAL) Troponin T high-sensitivity series (baseline, [...] ORDERABLES Final R esult Performing Organization Address City/[facility]/ZIP Co de Phone Number [facility] ([place]) [address] [place] [address] Department [place] [address] * eGFR (10/05/2024 3:26 PM CDT) eGFR [...] MD LAB BLOOD ORDERABLES Final R esult [facility] ([place]) 1 [facility] Department [place] [address] * (ABNORMAL) Differential, auto (10/05/2024 3:26 PM [...] Final R esult [facility] ([place]) 1 [facility] Department [place] [address] * (ABNORMAL) CBC with auto differential (10/05/2024 3:26 PM CDT) WBC 13.6(H) 3.8 - 9.9 K/cumm Hgb [...] RDW SD 47.7 35.7 - 48.1 fL [facility] ([place]) NRBC abs 0.00 0.00 - 0.01 K/cumm [facility] ([place]) Blood Venous blood specimen / Unknown 10/05/2024 3:26 PM CDT 10/05/2024 3:32 PM CDT Kana Valentine MD LAB BLOOD ORDERABLES Final R esult Performing Organization Address City/[facility]/ZIP Co de Phone Number [facility] ([place]) [address] [place] [address] [place] [address] * D-dimer, quantitative (10/05/2024 3:26 PM CDT) D-Dimer 468 <=499 ng/mL FEU [facility] ([place]) Comment: Interpretive data FDA approved the D-dimer, [...] 68, VTE cut-off 680 ng/ml FEU. References; Schoutmack HT et al. Brit Med J. 2013;346:f2492. Eldon et al. Annals Int Med. 2015;163:701-11. Current interpretive data was last revised on 2019. Blood 10/05/2024 3:26 PM CDT 10/05/2024 3:50 PM CDT Kana Valentine MD LAB BLOOD ORDERABLES Final R esult Performing Organization Address City/[facility]/ZIP Co de Phone Number [facility] ([place]) [address] [facility] [place] [address] * (ABNORMAL) Comprehensive metabolic panel (10/05/2024 3:26 PM CDT) Sodium 132(L) 135 - 145 mmol/L Potassium, pl 3.8 3.3 - 4.9 mmol/L [facility] ([place]) Chloride 99 97 - 110 mmol/L [facility] ([place]) CO2 22 22 - 32 mmol/L [facility] ([place]) Anion gap 12 2 - 15 mmol/L [facility] ([place]) BUN 7 6 - 25 mg/dL [facility] ([place]) Creatinine 0.68 0.60 - 1.10 mg/dL [facility] ([place]) Glucose 93 70 - 199 mg/dL [facility] ([place]) [...] MD LAB BLOOD ORDERABLES Final R esult [facility] ([place]) 1 [facility] Department [place] [address]32 * ECG 12 lead (10/05/2024 3:14 PM CDT) 10/05/2024 3:14 PM CDT Narrative [facility] - 10/05/2024 3:38 PM CDT Vent Rate: 178 bpm RR Interval: 336 msec WY Interval: 0 msec QRS Duration: 81 msec QT Interval: 254 msec QTC Interval: 348 msec P-R-T [place]: [id number] - 68 - 242 degrees IMPRESSION: SUPRAVENTRICULAR TACHYCARDIA ST DEVIATION AND MODERATE T-WAVE ABNORMALITY, CONSIDER INFERIOR ISCHEMIA [-0.1+ mV T-WAVE IN II/aVF] CRITICAL TEST RESULT Compared to prior EKG, heart rate has increased ST segment depressions are new SVT replaced sinus rhythm Electronically Signed By: Dallin Altman MD Kana Valentine MD ECG ORDERABLES Final Result [facility] from Last 3 Months Insurance [facility] Advance Directives For more information, please contact: [phone] * Full Code (Latest Code Status on File) Date Activated Date Inactivated Comments 10/05/2024 5:17 PM 10/07/2024 5:14 PM * Full Code Date Activated Date Inactivated Comments 04/29/2019 2:09 AM 04/29/2019 11:23 PM * Full Code Date Activated Date Inactivated Comments 10/08/2017 7:52 AM 10/09/2017 10:17 PM Healthcare Agents on File Name Relationship Healthcare Agent Relationshi p Communication Anna Malone Mother Health Care Agent Care Teams Composition Roofer Relationship Specialty Start Date End Date Unknown, Notinfile PCP - General 04/30/19
--- OUTSIDE RECORDS SUMMARY | 2024-12-31 | XMS_ITS | Clinical Summary ---
Author Organization [facility] Address [address] [place] [address] Care Team Providers Care Clinic Receptionist Name Role Phone Unavailable Primary Care Provider Unavailabl e Source Comments [facility],non-owned Affiliates and Associated Physician Practices is amultiple site organization consisting of ambulatory clinics and hospital sitesin [place], [place], [place] and [place]. This disclosure is being madepursuant to the Care Everywhere program and may not contain all information available regarding this patient. Last updated 18.[facility] Allergies No known active allergies Medications * This document contains information received from the source organization and may not represent a complete record from that organization. * Be aware that medications may not be up to date on this document. Alwaysverify current medications with the patient. lansoprazole (PREVACID) 30 MG capsuleIndicat ions:Gastroeso phageal Reflux Disease Take 30 mg by mouth daily before breakfast Reasons: Gastroesophageal Reflux Disease Active FLUoxetine (PROZAC) 20 MG capsuleIndicat ions:Major Depressive Disorder Take 1 Cap by mouth once daily Reasons: Major Depressive Disorder 7 Cap 3 01/26/20 17 Active traZODone (DESYREL) 50 MG tabletIndicati ons:Major Depressive Disorder Take 1 Tab by mouth at bedtime Reasons: Major Depressive Disorder 7 Tab 3 01/26/20 17 Active nicotine (NICODERM CQ) 21 MG/24HR patchIndicatio ns:Nicotine Dependence Apply 1 Patch to skin once daily Remove old patch before applying new patch. Reasons: Nicotine Addiction 7 Patch 3 01/26/20 17 Active Active Problems Problem Noted Date Diagnosed Date Major depression, recurrent 01/25/2017 Depression with suicidal ideation 01/25/2017 Tobacco abuse 01/25/2017 COPD (chronic obstructive pulmonary disease) Iron deficiency anemia 01/25/2017 Family History Medical History Relation Name Comments Alcohol abuse Father Hypertension Mother Relation Name Status Comments Father Mother Social History Tobacco Use Types Packs/Day Years Used Date Smoking Tobacco: Every Day Cigarettes 0.5 15 Smokeless Tobacco: Never Tobacco Cessation:Ready to Q uit: Yes; Counseling Given: Yes Alcohol Use Standard Drinks/Week Comments No 0 (1 standard drink = 0.6 oz pur e alcohol) Comments Unknown Sex and Gender Information Value Date Recorded Sex Assigned at Not on file Legal Sex Female 9:35 AM CDT Gender Identity Not on file Sexual Orientation Not on file Last Filed Vital Signs Vital Sign Reading Time Taken Comments Blood Pressure 111/61 01/25/2017 7:33 AM CDT Pulse 59 01/25/2017 7:33 AM CDT Temperature 36.6 C (97.8 F) 01/25/2017 7:33 AM CDT Respiratory Rate 18 01/25/2017 7:33 AM CDT Oxygen Saturation 100% 01/25/2017 7:33 AM CDT Inhaled Oxygen Concentration - - Weight 68.9 kg (152 lb) 01/22/2017 3:07 AM CDT Height 157 cm (5' 1.81) 01/22/2017 3:07 AM CDT Body Mass Index 27.97 01/22/2017 3:07 AM CDT Plan of Treatment Health Maintenance Due Date Last Done Comments COLOGUARD (AGES 45-75) - COL ON CA SCREENING 1972 COLON MONITORING 1972 COLONOSCOPY - COLON CA SCREENING 1972 CT COLONOGRAPHY - COLON CA SCREENING 1972 Colorectal Cancer Screening 1972 FIT - COLON CA SCREENING 1972 FLEX SIG - COLON CA SCREENING 1972 MAMMOGRAM 1972 HIV SCREENING 1987 HEPATITIS C SCREENING 05/11/1990 DTAP/TDAP/TD VACCINES (1 - Tdap) 1991 HEPATITIS B VACCINE (1 of 3 - 19+ 3-dose series) 1991 PNEUMOCOCCAL VACCINE 50+ (1 of 2 - PCV) 1991 LIPID TESTING 01/24/2022 01/24/2017 ZOSTER VACCINE (1 of 2) 2022 COVID-19 VACCINE ( - 2023-2 5 season) 2024 DEPRESSION SCREENING 07/15/2024 INFLUENZA VACCINE (Season Ended) 2025 HIB VACCINE Aged Out No longer eligi ble based on patient's age to complete this topic HPV VACCINE Aged Out No longer eligi ble based on patient's age to complete this topic MENINGOCOCCAL (Group B) VACC INE SHARED DECISION-MAKING Aged Out No longer eligibl e based on patient's age to complete this topic MENINGOCOCCAL GROUPS A/C/Y/W VACCINE Aged Out No longer eligible b ased on patient's age to complete this topic Procedures Procedure Name Priority Date/Time Associated Diagnosis Comments LIPID PROFILE AM Draw 01/24/2017 6:03 AM CDT from Last 3 Months or Most Recently Relevant to Health Maintenance Results * LIPID PROFILE (01/24/2017 6:03 AM CDT) [facility] Cholesterol 151 <200 mg/dL 01/24/2017 7:51 AM CDT [facility] Triglycerides 111 <150 mg/dL 01/24/2017 7:51 AM CDT [facility] HDL Cholesterol 42 >40 mg/dL 7 7:51 AM CDT [facility] Chol HDL Ratio 3.6 1.0 - 6.0 01/24/2017 7:51 AM T [facility] LDL Calculated 87 65 - 130 mg/dL 01/24/2017 7:51 AM T [facility] VLDL Calculated 22 10 - 40 mg/dL 01/24/2017 7:51 AM T [facility] Blood BLOOD SPECIMEN / Unknown Lab Venipuncture / Unknown 01/24/2017 6:03 AM CDT 01/24/2017 7:[address] [facility] - 01/24/2017 7:51 AM CDT Lipid Profile Comment: CHOLESTEROL LEVEL..................CLINICAL INTERPRETATION LESS THAN 200 MG/DL..............................DESIRABLE 200-239 MG/DL..............................BORDERLINE HIGH GREATER THAN 240 MG/DL................................HIGH LDL-CHOLESTEROL LEVEL..............CLINICAL INTERPRETATION LESS THAN 100 MG/DL................................OPTIMAL 100-129 MG/DL.................................NEAR OPTIMAL GREATER THAN 160 MG/DL...........................HIGH RISK HDL RISK LEVEL GREATER THEN 60 MG/DL............................DECREASED 40-60 MG/DL........................................AVERAGE LESS THAN 40 MG/DL...............................INCREASED TRIGLYCERIDE LEVEL..................CLINICAL INTERPRETATION LESS THAN 150 MG/DL...............................DESIRABLE 150-199 MG/DL...............................BORDERLINE HIGH 200-499 MG/DL..........................................HIGH GREATER THAN 500..................................VERY HIGH THE NATIONAL CHOLESTEROL EDUCATION PROGRAM HAS SET THE ABOVE GUIDELINES (REFERANCE VALUES) FOR CHOLESTEROL AND HDL. RISK ASSOCIATED WITH CHOLESTEROL/HDL RATIOS RISK....................MALE RATIO.............FEMALE RATIO 1/2 AVERAGE.................<3.4.......................<3.3 LOW RISK.................... 4.0 ...................... 3.8 AVERAGE..................... 5.0 ...................... 4.5 2X AVERAGE.................. 9.5 ...................... 7.0 3X AVERAGE...................>23........................>11 Kayla Lee MD LAB - CHEMISTRY ORDERABLES Tara andres Result Performing Organization Address [facility]/State/[facility] Co de Phone Number [facility] [address] from Last 3 Months or Most Recently Relevant to Health Maintenance Insurance MEDICAID LIMITED BENEFIT - [place] Advance Directives * Full Code (Latest Code Status on File) Date Activated Date Inactivated Comments 01/22/2017 1:49 AM 01/25/2017 12:41 PM * Full Code Date Activated Date Inactivated Comments 01/21/2017 10:27 PM 01/22/2017 1:49 AM
--- OUTSIDE RECORDS SUMMARY | 2024-12-31 00:01 | XMS_ITS | Data Portability ---
Author Organization [facility], [address] [facility] ([place]) Address [address] [place] [address] Care Team Providers Care Iap Displays Analyst Name Role Phone JOSSIE ANDREWS Primary Care Provider [phone] DESTINEE BOCANEGRA Referring Provider [phone] [facility] (PHYSICAL THERAPY) [facility] Therapist Assessment Encounter Date Assessment Date Assessment LastModified by Organization Details LastModified Time 12/10/2023 12/10/2023 History: Candace khanna is a 53-year-old female referred for evaluation of left knee pain. She has had left knee pain for approximately the past 5 months. She recalls no specific injury. It mainly hurts through the front of her knee. It radiates up and down her leg. She says that ibuprofen does help the pain. She did have a cortisone injection with Dr Andrews s office which did not help the pain. She has not had any physical therapy. She says that the pain is worse with stairs and walking or standing all day. 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 She says the pain can vary between a 4 and a 10/10. It is a throbbing, aching pain that is constant. There is some numbness and tingling. Social History: The patient smokes 2 or 3 packs a day. She admits to occasional alcohol use. Review of Systems: A complete 12-point review of systems is negative except for other joint pain, weakness, joint stiffness, joint swelling, headaches, limb swelling. Intake form dated today was independently reviewed and signed for review of symptoms, past medical history, social history, surgical history and family medical history. Physical Examination: Head is atraumatic, normocephalic. Mood and affect are appropriate. The patient answers questions appropriately. The eyes are without scleral icterus. The chest exam shows no use of accessory muscles. The patient has full range of motion of the lumbar spine. Patient has normal sensation throughout the bilateral lower extremities. The skin is without edema or jaundice bilaterally. The lumbar exam shows no pain with straight leg raise testing. She has full range of motion of the bilateral knees from 0 to 125 degrees. She has 5/5 strength of the bilateral EHL. No varus or valgus laxity of the bilateral knees. She has pain with deep flexion through the patellofemoral joint, left knee. Negative right knee. Mild pain with Sol s maneuver bilaterally. X-rays of the left knee were independently reviewed from an outside facility, transferred to [facility] and show mild to moderately severe left knee patellofemoral joint osteoarthritis. Assessment: 1. Mild to moderately severe left knee patellofemoral joint osteoarthritis. Plan: Clinical findings were discussed with the patient. I recommended conservative management of her left knee with physical therapy. She will continue her ibuprofen. She will follow up in 6 weeks. If she remains painful, I would recommend an MRI of the left knee. Not available 12/11/2023 14:38:12 02/04/2024 02/04/2024 History: Candace khanna returns for follow-up of her bilateral knees. She says that both knees are doing fantastic after physical therapy. The pain is a 0/10. She is nearly 100% better. She is not taking any medication for pain. She feels that her range of motion and strength are much better. Physical Examination: Range of motion 0 to 125 degree left knee compared to 0 to 130 degrees of the right knee. No varus or valgus laxity bilaterally. No pain along the medial or lateral joint line bilaterally. Negative Jossy bilaterally. She walks with a non-antalgic gait. Assessment: 1. Bilateral knee mild to moderate patellofemoral joint osteoarthritis with marked improvement in pain symptoms after completing physical therapy. Plan: Clinical findings were discussed with the patient. I recommended conservative management of her bilateral knees with continued home exercises. She can follow up with us as needed. juliet [email or web address] Not available 02/05/2024 00:07:26 Plan of Treatment Reminders Order Date Submit Date Provider Last Modified By Organization Details Last Modified Time Details Appointments None record ed. Lab None record ed. Referral None record ed. Procedures None record ed. Surgeries None record ed. Imaging None record ed. Medication Orders None record ed. Patient TargetsNo targets recorded. Patient InstructionsNo instructions recorded. Reason for Referral None Reported. Problems Name Problem SNOMED Code Status Onset Date Resolution Date Notes Provider Name and Address Organization Details Recorded Time Pain of bilateral knee joints 9156134189732 04 Active 2023 Mykel Khan MD [address] [facility], [place], [address], [facility] 4 10:07:04 Osteoarthri tis of left knee joint 5857098283574 09 Active 2023 Mykel Khan MD [address] [facility], [place], [address], [facility] 4 12:13:38 Osteoarthri tis of right knee joint 7493697028549 00 Active 2023 Mykel Khan MD [address] [facility], [place], [address], [facility] 4 21:46:00 Problem Notes None recorded. Procedures Surgical History Date Name Laterality Status Provider Name and Address Organization Details Recorded Time Removal of gallbladder completed Not Available Health Note 12/03/2023 12:36:31 Total hysterectomy completed Not Available Health Note 12/03/2023 12:36:32 Removal of tonsils completed Not Available Health Note 12/03/2023 12:36:32 Imaging Results None recorded. Procedure Notes None recorded. Medical Equipment None Reported. Allergies Allergen ID Allergen Name Allergen Category Reaction Reaction Severity Criticality Documentation Date Start Date Code Code System Note Provider Name and Address Organization Details Recorded Time 7071003 coconut oil food,medi cation cough diarrhea eye redness eye swelling hives itching respirato ry distress Not available Not available Not available Not available Not available Not available Not available Not available 12/03/2023 20225 39 RxNorm Not Available Health Note 12:36:31 Medications Name Sig Start Date Stop Date Status Note LastModified by Organization Details LastModified Time atorvastatin 40 mg tablet TAKE 1 TABLET BY MOUTH DAILY active Not Available Not Available Not Available prednisone 10 mg tablet active Not Available Not Available Not Available albuterol sulfate 2.5 mg/3 mL (0.083 %) solution for nebulization active Not Available Not Available Not Available azithromycin 250 mg tablet active Not Available Not Available Not Available ondansetron HCl 4 mg tablet active Not Available Not Available Not Available famotidine 40 mg tablet active Not Available Not Available Not Available sertraline 100 mg tablet TAKE 2 TABLETS BY MOUTH EVERY DAY AT BEDTIME FOR DEPRESSION OR ANXIETY active Not Available Not Available N ot Available omeprazole 40 mg capsule,johan yed release TAKE 1 CAPSULE BY MOUTH DAILY active Not Available Not Available Not Available quetiapine 100 mg tablet TAKE 1 TABLET BY MOUTH EVERY DAY AT BEDTIME active Not Available Not Available No t Available amoxicillin 875 mg tablet active Not Available Not Available Not Available amitriptylin e 10 mg tablet active Not Available Not Available Not Available ergocalcifer ol (vitamin D2) 1,250 mcg (50,000 unit) capsule active Not Available Not Available Not Available methylpredni solone 4 mg tablets in a dose pack FOLLOW PACKAGE DIRECTIONS active Not Available Not Available N ot Available fluticasone propionate 50 mcg/actuatio n nasal spray,suspen sami SHAKE LIQUID AND USE 2 SPRAYS IN EACH NOSTRIL DAILY active Not Available Not Available No t Available naproxen 500 mg tablet TAKE 1 TABLET BY MOUTH TWICE DAILY active Not Available Not Available No t Available tiotropium bromide 18 mcg capsule with inhalation device INHALE THE CONTENTS OF 1 CAPSULE VIA INHALATION DEVICE DAILY active Not Available Not Available No t Available Symbicort 160 mcg-4.5 mcg/actuatio n HFA aerosol inhaler INHALE 2 PUFFS BY MOUTH TWICE DAILY active Not Available Not Available No t Available cholecalcife rol (vitamin D3) 1,250 mcg (50,000 unit) capsule TAKE 1 CAPSULE BY MOUTH WEEKLY DIRECTED active Not Available Not Available No t Available Vitals Date Recorded Body height Body mass index (BMI) Body weight Heart rate Oxygen saturation Oxygen saturation in Arterial blood by Pulse oximetry Systolic blood pressure Diastolic blood pressure Provider Name and Address Organization Details Last Updated DateTime 4 162.56 cm 29.4 kg/m2 01547.3 g 72 /min 100 % 100 % 142 mm[Hg] 74 mm[Hg] Valencia Tripp [facility] 4 11:55:19 Date Recorded Body height Body mass index (BMI) Body weight Heart rate Oxygen saturation Oxygen saturation in Arterial blood by Pulse oximetry Systolic blood pressure Diastolic blood pressure Provider Name and Address Organization Details Last Updated DateTime 4 162.56 cm 29.5 kg/m2 49776.8 9 g 74 /min 98 % 98 % 137 mm[Hg] 86 mm[Hg] Tracy Lieberman [facility] 4 11:50:11 Social History Question Answer Notes LastModified by Postcard & Tag Details LastModified Time Do You Have An Advance Directive? No [email or web address] Information not available 12/03/2023 What Is Your Level Of Caffeine Consumption? Moderate [email or web address] Information not available 12/03/2023 How Many Times Per Week Do You Exercise? Less Than 1 Time Per Week [email or web address] Information not available 12/03/2023 How Many Packs Per Day (PPD)? 2 Packs Per Day [email or web address] Information not available 12/03/2023 How Long Have You Smoked? 15 Years [email or web address] Information not available 12/03/2023 Do You Have A Medical Power Of Numerical Control Drill Press Operator? No [email or web address] Information not available 12/03/2023 What Was The Date Of Your Most Recent Tobacco Screening? 12/10/2023 [email or web address] Information not available 12/03/2023 What Is Your Relationship Status? Single [email or web address] Information not available 12/03/2023 Sex: Unknown Functional Status Question Answer Note LastModified by Postcard & Tag Details LastModified Time How many times per week do you consume alcohol? Less than 1 time per week [email or web address] Information not available 12/03/2023 Do you use any illicit or recreational drugs? No [email or web address] Information not available 12/03/2023 What is your level of alcohol consumption? Occasional [email or web address] Information not available 12/03/2023 Are you currently employed? 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 None [email or web address] Information not available 12/03/2023 Mental Status None recorded. Family History Relationship Description Onset Age of this Age Resolved Age Notes LastModified by Organization Details LastModified Time Unspecified Relation Attention deficit hyperactivit y disorder [email or web address] Not available 12/02 12:36:30 Unspecified Relation Seizure disorder [email or web address] Not available 2023 12:36:30 Paternal Grandfather Family history of malignant neoplasm [email or web address] Not available 2023 12:36:30 Mother Diabetes mellitus [email or web address] Not available 2023 12:36:30 Mother Hypertensive disorder [email or web address] Not available 2023 12:36:30 Mother Hypercholest erolemia [email or web address] Not available 2023 12:36:30 Medical History Condition Response Diabetes N Anxiety Disorder N Bleeding Disorder N Attention-deficit Hyperactivity Disorder N High Blood Pressure N Arthritis Y Hyperlipidemia N Cancer N Stroke N Thyroid Problems N Asthma N Depression Y COPD Y Anemia N Seizures N Heart Disease N Fibromyalgia N Osteoporosis N Kidney Disease N Gynecological HistoryNo gynecological history recorded. Obstetrics History GPAL:G 0 P 0 0 0 0 Past Encounters Encounter ID Performer Location Encounter Start Date Encounter Closed Date Diagnosis/Indication Diagnosis SNOMED-CT Code Diagnosis ICD10 Code Diagnosis Note [id number] MD PERLA Fuentes [facility] ([place]) [address] [facility] [place] [address] 12/10/2023 11:48:13 12/10/2023 14:38:23 Pain of right knee joint 2068473360 61069 M25.561 Pain of le ft knee joint 9687097886 45749 M25.562 Pain of bi lateral knee joints 1662978406 84872 M25.561 M25.562 Osteoarthr itis of left knee joint 3356371050 33016 M17.12 [id number] Mykel Khan MD [facility] ([place]) [address] [facility] [place] [address] 02/04/2024 11:36:20 02/04/2024 12:10:37 Osteoarthritis of left knee joint 6867959116 27022 M17.12 Osteoarthr itis of right knee joint 5165033801 66954 M17.11 Additional diagnosis detail: Primary osteoarthr itis of right knee Health Concerns Section Related Observation LastModified by Organization Detai ls LastModified Time None Recorded Concern Status LastModified by Organization Details LastModified Time None Recorded Advance Directives Directive N: Payers Insurance Date Sequence Insurance Name Policy Number Policy Kang Covered Member ID Kang Member ID Guarantor Name 02/06/2024 1 [facility] - DOS ON OR AFTER 21 (MEDICAID REPLACEMENT - HMO) Leslie Garcia [id number] Leslie Garcia Notes Date Note Type Note Provider Name and Address Organization Details Recorded Time 4 text/html Leslie Nantravis a 53 year oldfemalepresenting for care. Mykel Khan MD [address] [place] [address], [phone], [facility] 12/11/2023 17:40:03 OBGyn Episode No OBEpisode recorded.
--- OUTSIDE RECORDS SUMMARY | 2024-12-31 00:01 | XMS_ITS ---
Author Organization Unknown Address [address] [place] [phone] Phone Care Team Providers Care Elder Counselor Name Role Phone ОЛЬГА Gregory Attending Unavailable DARRYL Latif Primary Unavailable Social History Type Status Start Date End Date Code Code Syst em Smoking History Current every day smoker 176939062 SNOMED CT Sex Female Hospital Discharge Instructions Should you have any questions prior to discharge, please contact a member of your healthcare team. If you have left the hospital and have any questions, please contact your primary care physician. Reason For Referral No Data Found Plan of Treatment Stress Test Treadmill 04/19/2022 Encounters Encounter Diagnosis Start Date Code Code Sys tem Bilateral primary osteoarthritis of knee 02/04/2024 SNOMED-CT Personal Care Team Section Performer Name Performer Role Active Date Inactive Da JOSSIE Herrera PCP - Primary care physician 2022-04-19
--- OUTSIDE RECORDS SUMMARY | 2024-12-31 00:01 | XMS_ITS ---
Author Organization Unknown Address [address] [place] [phone] Phone Care Team Providers Care Fugitive Detective Name Role Phone ОЛЬГА BEREKET Gregory Attending Unavailable DARRYL Latif Primary Unavailable Social History Type Status Start Date End Date Code Code Syst em Smoking History Current every day smoker 877407586 SNOMED CT Sex Female Hospital Discharge Instructions [...]
--- OUTSIDE RECORDS SUMMARY | 2024-12-31 00:01 | XMS_ITS ---
Author Organization Unknown Address [address] [place] [phone] Phone Care Team Providers Care Elevator Worker Name Role Phone ОЛЬГА BEREKET Gregory Attending Unavailable DARRYL Latif Primary Unavailable Social History Type Status Start Date End Date Code Code Syst em Smoking History Current every day smoker 881678027 SNOMED CT Sex Female Hospital Discharge Instructions Should you have any questions prior to discharge, please contact a member of your healthcare team. If you have left the hospital and have any questions, please contact your primary care physician. Reason For Referral No Data Found Plan of Treatment Stress Test Treadmill 04/19/2022 Encounters Encounter Diagnosis Start Date Code Code Sys tem Idiopathic osteoarthritis 12/11/2023 438289072 SN OMED-CT Personal Care Team Section Performer Name Performer Role Active Date Inactive Da JOSSIE Herrera PCP - Primary care physician 2022-04-19
--- OUTSIDE RECORDS SUMMARY | 2024-12-31 00:01 | XMS_ITS | Encounter Summary ---
Author Organization [facility] Address [facility] [place] [address] Care Team Providers Care Truck Greaser Name Role Phone Arabella Ryan [facility] Primary Care Provider [phone] Raymond Sierra MD Primary Care Provider [phone] Encounter Details Date Type Department Care Team (Late st Contact Info) Description 12/20/2018 [place] [id number] , Generic Conversion, Social History Tobacco Use Types Packs/Day Years Used Date Smoking Tobacco: Never Assessed Comments Unknown Sex and Gender Information Value Date Recorded Sex Assigned at Female 09/23/2024 10:16 AM CDT Legal Sex Female 5:26 PM CDT Gender Identity Not on file Sexual Orientation Not on file documented as of this encounter Plan of Treatment Upcoming Encounters Date Type Department Care Team (Late st Contact Info) Description 01/04/2025 7:45 AM CDT Appointment [facility] [place] [address] Joe Vela MD [address] [place] [address] 01/04/2025 9:00 AM CDT Appointment [facility] [place] [address] Joe Vela MD [address] [place] [phone] 01/04/2025 9:00 AM CDT Appointment [facility] [place] [address] Joe Vela MD [address] [place] [address] [place] [phone] [place] [address] [place] [address] 01/04/2025 9:45 AM CDT Appointment [facility] [address] [place] [address] Joe Vela MD [address] [place] [address] documented as of this encounter Visit Diagnoses Not on filedocumented in this encounter Care Teams Truck Greaser Relationship Specialty Start Date End Date Arabella Ryan FNP- [address] [place] [address] PCP - General NURSE PRACTITIONER 04/07/19 03/29/22 Raymond Sierra MD [address] [place] [phone] PCP - General FAMILY PRACTICE 03/30/22 documented as of this encounter
--- OUTSIDE RECORDS SUMMARY | 2024-12-31 00:01 | XMS_ITS ---
Author Organization Unknown Address [address] [place] [phone] Phone Care Team Providers Care Airframe Technician Name Role Phone ОЛЬГА BEREKET Gregory Attending Unavailable DARRYL Latif Primary Unavailable Social History Type Status Start Date End Date Code Code Syst em Smoking History Current every day smoker [id number] SNOMED CT Sex Female Hospital Discharge Instructions [...]
--- NOTE | 2024-12-31 00:02 | PC.NURSE ---
DR GONZALEZ AT THE BEDSIDE
--- OUTSIDE RECORDS SUMMARY | 2024-12-31 00:02 | XMS_ITS ---
Author Organization Unknown Address [address] [place] [phone] Phone Care Team Providers Care Community Organization Worker Name Role Phone ОЛЬГА Gregory Attending Unavailable DARRYL Latif Primary Unavailable Social History Type Status Start Date End Date Code Code Syst em Smoking History Current every day smoker [id number] SNOMED CT Sex Female Hospital Discharge Instructions [...]
--- OUTSIDE RECORDS SUMMARY | 2024-12-31 00:03 | XMS_ITS ---
Author Organization Unknown Address [address] [place] [phone] Phone Care Team Providers Care Chief Deputy Coroner Name Role Phone ОЛЬГА BEREKET Gregory Attending Unavailable DARRYL Latif Primary Unavailable Social History Type Status Start Date End Date Code Code Syst em Smoking History Current every day smoker [id number] SNOMED CT Sex Female Hospital Discharge Instructions [...]
--- OUTSIDE RECORDS SUMMARY | 2024-12-31 00:03 | XMS_ITS ---
Author Organization Unknown Address [address] [place] [phone] Phone Care Team Providers Care Clinical Operations Manager Name Role Phone ОЛЬГА BEREKET Gregory Attending Unavailable DARRYL Latif Primary Unavailable Social History Type Status Start Date End Date Code Code Syst em Smoking History Current every day smoker [id number] SNOMED CT Sex Female Hospital Discharge Instructions [...]
--- OUTSIDE RECORDS SUMMARY | 2024-12-31 00:03 | XMS_ITS ---
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
--- OUTSIDE RECORDS SUMMARY | 2024-12-31 00:04 | XMS_ITS ---
Author Organization Unknown Address [address] [place] [phone] Phone Care Team Providers Care Associate Teacher Name Role Phone ОЛЬГА BEREKET Gregory Attending Unavailable DARRYL Latif Primary Unavailable Social History Type Status Start Date End Date Code Code Syst em Smoking History Current every day smoker [id number] SNOMED CT Sex Female Hospital Discharge Instructions [...]
[2024-12-31] MEDS: KETOROLAC 30 MG/ML VIAL (*BKC) IM (00:08)
== END 2024-12-31 00:27 | disposition home or self-care (01) ==
PROVIDERS: Emergency Provider Internal Medicine Critical Care Medicine; PCP Family Medicine
DX: M72.2 Plantar fascial fibromatosis (principal); J44.9 Chronic obstructive pulmonary disease, unspecified; F17.210 Nicotine dependence, cigarettes, uncomplicated
CPT/HCPCS: 73630; 96372; 99283; J1885